=== PATIENT | male | born 1965 | race African-American/Black ===

== ENCOUNTER 2023-05-02 21:56 | Inpatient (IN) | payer MEDICAID ==
[~2023-05-02] VITALS: Ht 172.7 cm; Wt 65.0 kg
[2023-05-02 23:28] LABS: BASOPHILS % (AUTO) 0.4 % (0-1); EOSINOPHILS % (AUTO) 0.6 % (0-6); HEMATOCRIT 39.6 % (42.0-52.0); HEMOGLOBIN 13.1 g/dl (14.0-17.9); LYMPHOCYTES # (AUTO) 0.6 X10'3 (1.1-4.8); LYMPHOCYTES % (AUTO) 6.3 % (21-51); MEAN CORPUSCULAR HEMOGLOBIN 28.8 PG (27.0-31.0); MEAN CORPUSCULAR VOLUME 87.5 FL (78-98); MEAN PLATELET VOLUME 6.8 FL (7.4-10.4); MONOCYTES # (AUTO) 0.7 X10'3 (0-0.9); MONOCYTES % (AUTO) 7.4 % (2-12); NEUTROPHILS # (AUTO) 7.6 X10'3 (1.8-7.7); NEUTROPHILS % (AUTO) 85.3 % (42-75); PLATELET COUNT 283 X10'3 (140-440); RED BLOOD COUNT 4.53 X10'6 (4.70-6.10); WHITE BLOOD COUNT 8.9 X10'3 (4.5-11.0)
[2023-05-02 23:42] LABS: ALANINE AMINOTRANSFERASE 25 U/L (12-78); ALBUMIN 3.4 G/DL (3.4-5.0); ALBUMIN/GLOBULIN RATIO 0.8 (1.1-1.5); ALKALINE PHOSPHATASE 81 IU/L (46-116); ANION GAP 8 (8-16); ASPARTATE AMINO TRANSFERASE 24 U/L (10-37); BILIRUBIN,TOTAL 0.3 MG/DL (0.1-1.0); BLOOD UREA NITROGEN 7 MG/DL (7-18); BUN/CREATININE RATIO 8.3 (10.0-20.0); CALCIUM 8.9 MG/DL (8.5-10.1); CHLORIDE 99 MMOL/L (99-107); CREATININE 0.84 MG/DL (0.60-1.10); GLUCOSE 103 MG/DL (70-104); POTASSIUM 3.7 MMOL/L (3.5-5.1); SODIUM 135 MMOL/L (135-145); TOTAL CARBON DIOXIDE 28.3 MMOL/L (24-32); TOTAL PROTEIN 7.7 G/DL (6.4-8.2); eCRCL 87 ML/MIN; eGFR > 90 ML/MIN
[2023-05-02 23:51] LABS: PRO BRAIN NATRIURETIC PEPTIDE 65 PG/ML (0-125)
[2023-05-03] MEDS ORDERED: normal saline 1000ML IV soln IVB ONE (07:40)
[2023-05-03] MEDS ORDERED: nitroGLYCERIN 0.4mg/hour patch TD ONE (07:40)
[2023-05-03] MEDS ORDERED: aspirin 81mg tab.chew PO ONE (07:40)
[2023-05-03 08:23] LABS: URINE AMPHETAMINE SCREEN NEGATIVE (Neg); URINE BARBITUATE SCREEN NEGATIVE (Neg); URINE BENZODIAZEPINES SCREEN NEGATIVE (Neg); URINE CANNABINOID SCREEN NEGATIVE (Neg); URINE COCAINE SCREEN NEGATIVE (Neg); URINE METHADONE SCREEN NEGATIVE (Neg); URINE OPIATE SCREEN NEGATIVE (Neg); URINE PHENCYCLIDINE SCREEN NEGATIVE (Neg)
[2023-05-03 08:33] LABS: MAGNESIUM 2.2 MG/DL (1.5-2.4)
[2023-05-03 08:35] LABS: ETHANOL < 10 MG/DL (<10)
[2023-05-03 09:21] LABS: APTT 47 SECONDS (22-32); PROTHROMBIN TIME 10.9 SECONDS (9.0-12.0)
[2023-05-03 10:50] LABS: LIPASE < 50 U/L (73-393)
[2023-05-03] MEDS ORDERED: metoprolol tartrate 1mg/ml inj IV PRN (13:05)
[2023-05-03] MEDS ORDERED: nitroGLYCERIN 0.4mg SUBLingual tab SL PRN (13:05)
[2023-05-03] MEDS ORDERED: PERFLUTREN PROTEIN-A MICROSPHR (Optison) 0.22 MG/ML 3ML VIAL IV ONE (13:05)
[2023-05-03] MEDS ORDERED: aminophylline 250mg/10ml inj. IV PRN (13:05)
[2023-05-03] MEDS ORDERED: regadenoson 0.4mg/5ml syringe IV PRN (13:05)
[2023-05-03] MEDS ORDERED: ipratropium/albuterol 3ml nebule NEB PRN (13:10)
[2023-05-03] MEDS: nicotine 14mg patch - 24hr TD SCH (13:10)
[2023-05-03] MEDS ORDERED: mag hydrox/Alum hydrox/simeth 30ml oral suspension PO PRN (13:10)
[2023-05-03] MEDS ORDERED: magnesium 4gm in 100ml NS 100 ML IV PRN (13:10)
[2023-05-03] MEDS ORDERED: acetaminophen 325mg tablet PO PRN (13:10)
[2023-05-03] MEDS ORDERED: potassium Cl 40MEQ/1/2NS 520ml 520 ML IV PRN (13:10)
[2023-05-03] MEDS ORDERED: ondansetron/PF 4mg/2ml inj IV PRN (13:10)
[2023-05-03] MEDS ORDERED: albuterol 2.5 MG/3 ML nebule NEB PRN (13:10)
[2023-05-03] MEDS ORDERED: potassium Cl 20 mEq SR tablet PO PRN ×2 (13:10)
[2023-05-03] MEDS ORDERED: magnesium 2GM in 50ml NS 50 ML IV PRN (13:10)
[2023-05-03] MEDS ORDERED: CefTRIAXone/D5W-Rocephin 1gm 50 ML IV ONE (13:35)
--- NOTE | 2023-05-03 13:37 | NUR ---
evaluated pt for stress test, pt c/o chest pain, has a nitro patch on, skin is warm to touch, temp 100.[address] San aware and gave verbal order to hold stress test until tomorrow. Jacque RN aware of plan
[2023-05-03] MEDS ORDERED: iohexol 350MG/ML 100ml bottle IV ONE (14:10)
[2023-05-03 15:00] LABS: BASOPHILS # (AUTO) 0.1 X10'3 (0-0.2); BASOPHILS % (AUTO) 1.1 % (0-1); EOSINOPHILS % (AUTO) 0.3 % (0-6); HEMATOCRIT 37.6 % (42.0-52.0); HEMOGLOBIN 12.5 g/dl (14.0-17.9); LYMPHOCYTES # (AUTO) 0.4 X10'3 (1.1-4.8); LYMPHOCYTES % (AUTO) 5.8 % (21-51); MEAN CORPUSCULAR HEMOGLOBIN 28.8 PG (27.0-31.0); MEAN CORPUSCULAR HGB CONC 33.2 g/dL (33.0-36.5); MEAN CORPUSCULAR VOLUME 86.6 FL (78-98); MEAN PLATELET VOLUME 6.9 FL (7.4-10.4); MONOCYTES # (AUTO) 0.7 X10'3 (0-0.9); MONOCYTES % (AUTO) 9.6 % (2-12); NEUTROPHILS # (AUTO) 6.3 X10'3 (1.8-7.7); NEUTROPHILS % (AUTO) 83.2 % (42-75); PLATELET COUNT 244 X10'3 (140-440); RED BLOOD COUNT 4.34 X10'6 (4.70-6.10); WHITE BLOOD COUNT 7.6 X10'3 (4.5-11.0)
[2023-05-03 15:01] VITALS: PULSE 103; RESP 20; O2SAT 99
[2023-05-03 15:06] LABS: ALANINE AMINOTRANSFERASE 22 U/L (12-78); ALBUMIN 2.9 G/DL (3.4-5.0); ALBUMIN/GLOBULIN RATIO 0.7 (1.1-1.5); ALKALINE PHOSPHATASE 74 IU/L (46-116); ANION GAP 8 (8-16); ASPARTATE AMINO TRANSFERASE 16 U/L (10-37); BILIRUBIN,TOTAL 0.7 MG/DL (0.1-1.0); BLOOD UREA NITROGEN 8 MG/DL (7-18); BUN/CREATININE RATIO 8.5 (10.0-20.0); CALCIUM 8.6 MG/DL (8.5-10.1); CHLORIDE 98 MMOL/L (99-107); CREATININE 0.94 MG/DL (0.60-1.10); GLUCOSE 92 MG/DL (70-104); POTASSIUM 3.9 MMOL/L (3.5-5.1); SODIUM 131 MMOL/L (135-145); TOTAL CARBON DIOXIDE 25.3 MMOL/L (24-32); TOTAL PROTEIN 6.8 G/DL (6.4-8.2); eCRCL 78 ML/MIN; eGFR > 90 ML/MIN
[2023-05-03] MEDS ORDERED: ATOR20TA PO (15:31)
[2023-05-03] MEDS ORDERED: METO-395 PO (15:31)
[2023-05-03] MEDS ORDERED: ASPI81TA52 PO (15:31)
[2023-05-03] MEDS ORDERED: AMIT10TA6 PO (15:31)
[2023-05-03] MEDS ORDERED: NITR0.4T51 SL (15:31)
--- NOTE | 2023-05-03 16:22 | NUR ---
Received report from BOOGIE Santillan from the ED of the plan of care for pt.
--- NOTE | 2023-05-03 16:22 | NUR ---
Report given to Christin RN, pt assigned bed [id number]
[2023-05-03 18:00] VITALS: BP 116/72; PULSE 108; RESP 20; TEMP 98.9; O2SAT 96
--- NOTE | 2023-05-03 18:30 | NUR ---
Patient in room ORTHO 4010. I have received report from ADELINE PAGAN and had the opportunity to ask questions and assume patient care.
[2023-05-03 19:11] VITALS: PULSE 105; RESP 16; O2SAT 99
[2023-05-03 20:00] VITALS: RESP 17; O2SAT 96
[2023-05-03] MEDS: K and/or MAG REPLACEMENT MC SCH (20:00)
[2023-05-03] MEDS: enoxaparin 40mg/0.4ml syringe SQ SCH (20:46)
[2023-05-03] MEDS: docusate sod 100mg capsule PO SCH (20:53)
[2023-05-03 22:00] VITALS: BP 146/54; PULSE 67; RESP 16; RESP 17; TEMP 98.4; O2SAT 95; O2SAT 96
--- NOTE | 2023-05-03 23:31 | NUR ---
Patient report given, questions answered & plan of care reviewed with PRUDENCE RN.
[2023-05-04] VITALS (17 sets, daily range): BP systolic 117–144; BP diastolic 77–96; PULSE 81–116; RESP 16–22; TEMP 97.8–99.9; O2SAT 97–100
--- NOTE | 2023-05-04 06:44 | NUR ---
Problems reprioritized. Patient report given, questions answered & plan of care reviewed with KELSY HYMAN.
[2023-05-04 07:10] LABS: BASOPHILS % (AUTO) 0.2 % (0-1); EOSINOPHILS % (AUTO) 0.2 % (0-6); HEMATOCRIT 39.7 % (42.0-52.0); HEMOGLOBIN 13.1 g/dl (14.0-17.9); LYMPHOCYTES # (AUTO) 0.7 X10'3 (1.1-4.8); LYMPHOCYTES % (AUTO) 10.6 % (21-51); MEAN CORPUSCULAR HEMOGLOBIN 28.7 PG (27.0-31.0); MEAN PLATELET VOLUME 7.5 FL (7.4-10.4); MONOCYTES # (AUTO) 0.7 X10'3 (0-0.9); MONOCYTES % (AUTO) 11.4 % (2-12); NEUTROPHILS # (AUTO) 4.9 X10'3 (1.8-7.7); NEUTROPHILS % (AUTO) 77.6 % (42-75); PLATELET COUNT 245 X10'3 (140-440); RED BLOOD COUNT 4.57 X10'6 (4.70-6.10); RED CELL DISTRIBUTION WIDTH 14.3 % (11.5-14.5); WHITE BLOOD COUNT 6.4 X10'3 (4.5-11.0)
[2023-05-04 07:28] LABS: ALANINE AMINOTRANSFERASE 19 U/L (12-78); ALBUMIN 2.8 G/DL (3.4-5.0); ALBUMIN/GLOBULIN RATIO 0.6 (1.1-1.5); ALKALINE PHOSPHATASE 70 IU/L (46-116); ANION GAP 6 (8-16); ASPARTATE AMINO TRANSFERASE 15 U/L (10-37); BILIRUBIN,TOTAL 0.6 MG/DL (0.1-1.0); BLOOD UREA NITROGEN 12 MG/DL (7-18); BUN/CREATININE RATIO 12.1 (10.0-20.0); CALCIUM 9.2 MG/DL (8.5-10.1); CHLORIDE 100 MMOL/L (99-107); CREATININE 0.99 MG/DL (0.60-1.10); GLUCOSE 97 MG/DL (70-104); POTASSIUM 4.1 MMOL/L (3.5-5.1); SODIUM 132 MMOL/L (135-145); TOTAL CARBON DIOXIDE 25.6 MMOL/L (24-32); TOTAL PROTEIN 7.3 G/DL (6.4-8.2); eCRCL 74 ML/MIN; eGFR > 90 ML/MIN
[2023-05-04] MEDS: K and/or MAG REPLACEMENT MC SCH ×2 (07:45→19:11)
[2023-05-04] MEDS: nicotine 14mg patch - 24hr TD SCH ×2 (08:00→18:01)
[2023-05-04] MEDS: docusate sod 100mg capsule PO SCH ×2 (08:00→20:00)
[2023-05-04] MEDS: CefTRIAXone/D5W-Rocephin 1gm 50 ML IV SCH (10:59)
[2023-05-04] MEDS: normal saline 1000ml 1,000 ML IV SCH (16:04)
[2023-05-04] MEDS ORDERED: lisinopril 5mg tablet PO ONE (17:20)
[2023-05-04] MEDS: nitroGLYCERIN 0.4mg SUBLingual tab SL PRN (18:02)
--- NOTE | 2023-05-04 18:40 | NUR ---
Report given to Shaila Downing RN, pt eating dinner at this time.
[2023-05-04] MEDS: enoxaparin 40mg/0.4ml syringe SQ SCH (20:04)
[2023-05-04] MEDS ORDERED: amitriptyline 10mg tablet PO SCH (21:00)
[2023-05-04] MEDS ORDERED: atorvastatin 20mg tablet PO SCH (21:00)
[2023-05-05] VITALS (13 sets, daily range): BP systolic 93–141; BP diastolic 65–89; PULSE 77–96; RESP 16–18; TEMP 98.4; O2SAT 92–96
[2023-05-05] MEDS: nitroGLYCERIN 0.4mg SUBLingual tab SL PRN ×3 (01:37→02:43)
--- NOTE | 2023-05-05 02:26 | NUR ---
patient c/o chest pain for 2nd time in an hour. Nitro administered, VS taken. Will retake in 15 minutes.
[2023-05-05] MEDS ORDERED: albumin (human) 25% 100 ML IV solution IV ONE (02:50)
[2023-05-05] MEDS ORDERED: morphine 2 MG/ML inj. syringe IV PRN (02:50)
[2023-05-05] MEDS: normal saline 1000ml 1,000 ML IV SCH ×2 (04:00→17:50)
[2023-05-05 06:17] LABS: BASOPHILS % (AUTO) 0.5 % (0-1); EOSINOPHILS # (AUTO) 0.1 X10'3 (0-0.9); EOSINOPHILS % (AUTO) 1.7 % (0-6); HEMATOCRIT 37.9 % (42.0-52.0); HEMOGLOBIN 12.7 g/dl (14.0-17.9); LYMPHOCYTES # (AUTO) 0.9 X10'3 (1.1-4.8); LYMPHOCYTES % (AUTO) 17.9 % (21-51); MEAN CORPUSCULAR HEMOGLOBIN 29.2 PG (27.0-31.0); MEAN CORPUSCULAR HGB CONC 33.6 g/dL (33.0-36.5); MEAN CORPUSCULAR VOLUME 86.9 FL (78-98); MEAN PLATELET VOLUME 7.4 FL (7.4-10.4); MONOCYTES # (AUTO) 0.7 X10'3 (0-0.9); MONOCYTES % (AUTO) 12.7 % (2-12); NEUTROPHILS # (AUTO) 3.6 X10'3 (1.8-7.7); NEUTROPHILS % (AUTO) 67.2 % (42-75); PLATELET COUNT 225 X10'3 (140-440); RED BLOOD COUNT 4.36 X10'6 (4.70-6.10); RED CELL DISTRIBUTION WIDTH 13.9 % (11.5-14.5); WHITE BLOOD COUNT 5.3 X10'3 (4.5-11.0)
--- NOTE | 2023-05-05 06:25 | NUR ---
Problems reprioritized. Patient report given, questions answered & plan of care reviewed with BOOGIE Kiran.
[2023-05-05 06:42] LABS: ALANINE AMINOTRANSFERASE 13 U/L (12-78); ALBUMIN 2.8 G/DL (3.4-5.0); ALBUMIN/GLOBULIN RATIO 0.6 (1.1-1.5); ALKALINE PHOSPHATASE 57 IU/L (46-116); ANION GAP 8 (8-16); ASPARTATE AMINO TRANSFERASE 16 U/L (10-37); BILIRUBIN,TOTAL 0.3 MG/DL (0.1-1.0); BLOOD UREA NITROGEN 14 MG/DL (7-18); BUN/CREATININE RATIO 14.4 (10.0-20.0); CALCIUM 9.5 MG/DL (8.5-10.1); CHLORIDE 101 MMOL/L (99-107); CHOL/HDL RATIO 2.7 (0.00-4.99); CHOLESTEROL 145 MG/DL (0-200); CREATININE 0.97 MG/DL (0.60-1.10); GLUCOSE 99 MG/DL (70-104); HDL CHOLESTEROL 54 MG/DL (35-60); LDL CHOLESTEROL 71 MG/DL (50-100); POTASSIUM 4.1 MMOL/L (3.5-5.1); SODIUM 134 MMOL/L (135-145); TOTAL PROTEIN 7.2 G/DL (6.4-8.2); TRIGLYCERIDES 68 MG/DL (20-135); eCRCL 75 ML/MIN; eGFR > 90 ML/MIN
[2023-05-05] MEDS: K and/or MAG REPLACEMENT MC SCH (06:43)
[2023-05-05] MEDS: CefTRIAXone/D5W-Rocephin 1gm 50 ML IV SCH (07:11)
[2023-05-05] MEDS: docusate sod 100mg capsule PO SCH (07:22)
[2023-05-05] MEDS ORDERED: lisinopril 5mg tablet PO SCH (08:00)
[2023-05-05] MEDS ORDERED: aspirin 81mg, enteric-coated 1 TAB TABLET.DR PO SCH (08:00)
[2023-05-05] MEDS ORDERED: metoprolol succinate 25mg (24-HOUR) SR. Tablet PO SCH (08:00)
[2023-05-05] MEDS ORDERED: atorvastatin 20mg tablet PO SCH (08:00)
[2023-05-05] MEDS ORDERED: LIDOcaine 1% 30ml preserv. free vial ONE (09:05)
[2023-05-05] MEDS ORDERED: midazolam 1 mg/ML 2ml injection ONE ×2 (09:05→10:56)
[2023-05-05] MEDS ORDERED: fentaNYL/PF 50MCG/1 ML 2ML syringe ONE ×2 (09:05→11:04)
[2023-05-05] MEDS ORDERED: iohexol 350MG/ML 100ml bottle IV ONE (09:06)
[2023-05-05] MEDS ORDERED: iohexol 350 MG/ML 50ML vial IV ONE ×2 (09:07→10:59)
--- NOTE | 2023-05-05 10:01 | NUR ---
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
[2023-05-05] MEDS ORDERED: HYDROcodone/acetaminophen 10/325mg tab PO PRN (12:15)
[2023-05-05] MEDS ORDERED: HYDROcodone/acetaminophen 5mg/325mg tablet PO PRN (12:15)
[2023-05-05] MEDS ORDERED: ondansetron/PF 4mg/2ml inj IV PRN (12:15)
[2023-05-05] MEDS ORDERED: nitroGLYCERIN 0.4mg SUBLingual tab SL PRN (12:15)
[2023-05-05] MEDS ORDERED: OXAZEpam 15mg capsule PO PRN (12:15)
[2023-05-05] MEDS ORDERED: proCHLORperazine 10 MG/2 ml inj IV PRN (12:15)
[2023-05-05] MEDS: nicotine 14mg patch - 24hr TD SCH (13:00)
--- NOTE | 2023-05-05 13:05 | NUR ---
Patient laying flat, no bleeding from site, will release pressure for 2 minutes at 1400 and 1600 and then at 1800 i will remove femstop per orders and assess for issues. no hematoma noted at this time
--- NOTE | 2023-05-05 14:00 | NUR ---
Femstop released for 2min per protocol and circulation, sensation and movement maintained and intact. Next release at 1600. Dr San says patient will be realeased after femstop is taken off at 1800.
[2023-05-05] MEDS ORDERED: LISI5TAB22 PO (14:01)
[2023-05-05] MEDS ORDERED: PANT-47 PO (14:01)
[2023-05-05] MEDS ORDERED: NICO-631 TD (14:08)
--- NOTE | 2023-05-05 15:38 | NUR ---
Patient sleeping comfortably, site, cdi with no evidence of hematoma
--- NOTE | 2023-05-05 16:16 | NUR ---
Femstop loostened for 2 minutes per protocol now back at standard setting. No signs of bleeding or hematoma. Pt doing well. Will DC femstop and patient at 1800 if stable
--- NOTE | 2023-05-05 18:04 | NUR ---
Femstop dc'd, no bleeding or signs of hematoma. Pt discharging per Dr Navarro orders. Patient would like to sit outside and wait for daughter. Patient is completely alert and oriented and stable on feet, has a cell phone and wants to wait for either daughter or "lady friend" to pick him up. Patient educated that if he does choose to smoke, although he has been advised against it, to take off his nicotine patch. Patient is getting dressed, ate dinner. 2x IV's dc'd, tele dc'd. All belongings will be taken from room.
== END 2023-05-05 18:25 | disposition home or self-care (01) | DRG 192 ==
LOC: ER 21:57 → ED HOLD 05-03 13:14 → ORTHO 4S 05-03 16:32
PROVIDERS: ADMIT Family Medicine; ATTEND Family Medicine
PROC: B32T1ZZ Computerized Tomography (CT Scan) of Left Pulmonary Artery using Low Osmolar Contrast (ICD-10-PCS; 2023-05-03)
PROC: B3201ZZ Computerized Tomography (CT Scan) of Thoracic Aorta using Low Osmolar Contrast (ICD-10-PCS; 2023-05-03)
PROC: B32S1ZZ Computerized Tomography (CT Scan) of Right Pulmonary Artery using Low Osmolar Contrast (ICD-10-PCS; 2023-05-03)
PROC: 4A02XM4 Measurement of Cardiac Total Activity, External Approach (ICD-10-PCS; 2023-05-04)
PROC: 3E033HZ Introduction of Radioactive Substance into Peripheral Vein, Percutaneous Approach (ICD-10-PCS; 2023-05-04)
PROC: 4A023N7 Measurement of Cardiac Sampling and Pressure, Left Heart, Percutaneous Approach (ICD-10-PCS; principal; 2023-05-05)
PROC: B2111ZZ Fluoroscopy of Multiple Coronary Arteries using Low Osmolar Contrast (ICD-10-PCS; 2023-05-05)
PROC: B2151ZZ Fluoroscopy of Left Heart using Low Osmolar Contrast (ICD-10-PCS; 2023-05-05)
PROC: B3101ZZ Fluoroscopy of Thoracic Aorta using Low Osmolar Contrast (ICD-10-PCS; 2023-05-05)
PROC: B41F1ZZ Fluoroscopy of Right Lower Extremity Arteries using Low Osmolar Contrast (ICD-10-PCS; 2023-05-05)
PROC: B3121ZZ Fluoroscopy of Left Subclavian Artery using Low Osmolar Contrast (ICD-10-PCS; 2023-05-05)
PROC: B31H1ZZ Fluoroscopy of Right Upper Extremity Arteries using Low Osmolar Contrast (ICD-10-PCS; 2023-05-05)
PROC: B41C1ZZ Fluoroscopy of Pelvic Arteries using Low Osmolar Contrast (ICD-10-PCS; 2023-05-05)
DX: R07.89 Other chest pain (principal); I50.21 Acute systolic (congestive) heart failure; K21.9 Gastro-esophageal reflux disease without esophagitis; I25.110 Atherosclerotic heart disease of native coronary artery with unstable angina pectoris; I42.9 Cardiomyopathy, unspecified; I11.0 Hypertensive heart disease with heart failure; E78.00 Pure hypercholesterolemia, unspecified; F17.210 Nicotine dependence, cigarettes, uncomplicated; I08.3 Combined rheumatic disorders of mitral, aortic and tricuspid valves; F31.9 Bipolar disorder, unspecified; I25.2 Old myocardial infarction; Z79.899 Other long term (current) drug therapy; Z82.49 Family history of ischemic heart disease and other diseases of the circulatory system; Z88.0 Allergy status to penicillin; Z71.6 Tobacco abuse counseling
CPT/HCPCS: 36415; 71045; 71275; 78452; 80053; 80061; 80305; 80320; 83605; 83690; 83735; 83880; 84145; 84484; 85025; 85610; 85730; 87040; 87081; 93005; 93017; 93306; 93458; 93567; 94760; 97161; 97530; 99152; 99153; 99285; A4615; A6258; A9500; G0378; J0696; J1644; J1650; J2250; J2270; J2785; J3010; J3490; J7030; P9047; Q9967

== ENCOUNTER 2023-06-01 08:52 | Emergency (ER) | payer MEDICAID ==
[~2023-06-01] VITALS: Ht 172.7 cm; Wt 66.0 kg
[~2023-06-01 08:52] MED LIST: AMIT10TA6 PO; ASPI81TA52 PO; ATOR20TA PO; LISI5TAB22 PO; METO-395 PO; NICO-631 TD; NITR0.4T51 SL; PANT-47 PO
--- NOTE | 2023-06-01 10:20 | NUR ---
AIRWAY IS PATENT. RESPIRATIONS APPEAR EVEN AND UNLABORED. RADIAL PULSE IS 103.
[2023-06-01] MEDS ORDERED: triamcinolone acetonide 0.5% cream 15gm TP SCH (10:35)
[2023-06-01] MEDS ORDERED: TRIA15CR61 TOP (10:55)
[2023-06-01 11:15] VITALS: BP 162/93; PULSE 99; RESP 18; TEMP 98.2; O2SAT 100
--- NOTE | 2023-06-01 12:33 | NUR ---
I AGREE WITH THE ASSESSMENT OF Mandy BOURGEOIS LVN.
== END 2023-06-01 12:34 | disposition home or self-care (01) ==
LOC: ER 08:53
DX: L28.0 Lichen simplex chronicus (principal); F31.9 Bipolar disorder, unspecified; Z88.0 Allergy status to penicillin; Z79.899 Other long term (current) drug therapy
CPT/HCPCS: 99283

== ENCOUNTER 2023-06-05 10:38 | Inpatient (IN) | payer MEDICAID ==
[~2023-06-05] VITALS: Ht 172.7 cm; Wt 70.0 kg
[~2023-06-05 10:38] MED LIST changes: +TRIA15CR61 TOP
[2023-06-05] MEDS ORDERED: oxyCODONE/APAP 5-325mg tablet PO ONE (11:25)
[2023-06-05] MEDS ORDERED: normal saline 1000ML IV soln IV ONE (11:30)
[2023-06-05] MEDS ORDERED: levoFLOXACIN-Levaquin 750MG/D5 150 ML IV ONE (11:30)
[2023-06-05] MEDS ORDERED: vancomycin/NS 1 GM ADD-VANTAGE 250 ML X 1 DOSE IV ONE (12:20)
[2023-06-05 12:31] LABS: BASOPHILS % (AUTO) 0.2 % (0-1); EOSINOPHILS % (AUTO) 0.1 % (0-6); HEMATOCRIT 41.6 % (42.0-52.0); HEMOGLOBIN 13.5 g/dl (14.0-17.9); LYMPHOCYTES # (AUTO) 0.6 X10'3 (1.1-4.8); LYMPHOCYTES % (AUTO) 3.9 % (21-51); MEAN CORPUSCULAR HEMOGLOBIN 28.6 PG (27.0-31.0); MEAN CORPUSCULAR HGB CONC 32.5 g/dL (33.0-36.5); MEAN CORPUSCULAR VOLUME 87.8 FL (78-98); MONOCYTES # (AUTO) 1.4 X10'3 (0-0.9); MONOCYTES % (AUTO) 9.9 % (2-12); NEUTROPHILS # (AUTO) 12.2 X10'3 (1.8-7.7); NEUTROPHILS % (AUTO) 85.9 % (42-75); PLATELET COUNT 305 X10'3 (140-440); RED BLOOD COUNT 4.74 X10'6 (4.70-6.10); RED CELL DISTRIBUTION WIDTH 14.1 % (11.5-14.5); WHITE BLOOD COUNT 14.2 X10'3 (4.5-11.0)
[2023-06-05 12:46] LABS: ALANINE AMINOTRANSFERASE 17 U/L (12-78); ALBUMIN 3.1 G/DL (3.4-5.0); ALBUMIN/GLOBULIN RATIO 0.6 (1.1-1.5); ALKALINE PHOSPHATASE 69 IU/L (46-116); ASPARTATE AMINO TRANSFERASE 18 U/L (10-37); BILIRUBIN,TOTAL 0.4 MG/DL (0.1-1.0); BLOOD UREA NITROGEN 5 MG/DL (7-18); BUN/CREATININE RATIO 5.9 (10.0-20.0); CALCIUM 9.5 MG/DL (8.5-10.1); CREATININE 0.85 MG/DL (0.60-1.10); GLUCOSE 100 MG/DL (70-104); MAGNESIUM 2.2 MG/DL (1.5-2.4); TOTAL CARBON DIOXIDE 28.6 MMOL/L (24-32); TOTAL PROTEIN 8.4 G/DL (6.4-8.2); eCRCL 91 ML/MIN; eGFR > 90 ML/MIN
[2023-06-05 12:54] LABS: ANION GAP 8 (8-16); CHLORIDE 95 MMOL/L (99-107); POTASSIUM 3.6 MMOL/L (3.5-5.1); SODIUM 132 MMOL/L (135-145)
[2023-06-05] MEDS ORDERED: ondansetron/PF 4mg/2ml inj IV PRN (13:30)
[2023-06-05] MEDS ORDERED: potassium Cl 20 mEq SR tablet PO PRN ×2 (13:30)
[2023-06-05] MEDS ORDERED: magnesium 4gm in 100ml NS 100 ML IV PRN (13:30)
[2023-06-05] MEDS ORDERED: magnesium hydroxide 30ml (MOM) UD suspension PO PRN (13:30)
[2023-06-05] MEDS ORDERED: acetaminophen 325mg tablet PO PRN (13:30)
[2023-06-05] MEDS ORDERED: magnesium Cl slow-release 64mg tablet PO PRN (13:30)
[2023-06-05] MEDS ORDERED: diphenhydrAMINE 25mg capsule PO PRN (13:30)
[2023-06-05] MEDS ORDERED: haloperidol lactate 5mg/ml inj IM PRN (13:40)
[2023-06-05] MEDS ORDERED: dextrose 50%-water 50ml dispensing syringe IV PRN (13:40)
[2023-06-05] MEDS ORDERED: nicotine 21mg patch - 24 hr TD SCH (13:40)
[2023-06-05] MEDS ORDERED: LORazepam 1 MG tablet PO PRN ×2 (13:40→18:45)
[2023-06-05] MEDS ORDERED: haloperidol 5mg tablet PO PRN (13:40)
[2023-06-05] MEDS ORDERED: LORazepam 2 mg/ml vial IV PRN ×2 (13:40→18:45)
[2023-06-05 14:20] LABS: APTT 49 SECONDS (22-32); INR 1.1 INR; PROTHROMBIN TIME 11.4 SECONDS (9.0-12.0)
--- NOTE | 2023-06-05 15:05 | NUR ---
LAB HERE TO DRAW BLOOD CULTURES AFTER ADMINISTRATION OF LEVAQUIN. SPOKE WITH DR. PRATER AND IS REQUESTING CULTURES TO BE DRAWN AT THIS TIME.
[2023-06-05] MEDS: vancomycin/NS 1 GM ADD-VANTAGE 250 ML IV SCH (15:08)
[2023-06-05] MEDS: metoprolol succinate 25mg (24-HOUR) SR. Tablet PO SCH (15:57)
[2023-06-05] MEDS: aspirin 81mg, enteric-coated 1 TAB TABLET.DR PO SCH (15:58)
[2023-06-05] MEDS: folic acid 1mg/0.2ml inj IV SCH (16:26)
[2023-06-05 16:28] LABS: BILIRUBIN,URINE NEGATIVE (Neg); CLARITY,URINE CLEAR (Clear); COLOR,URINE STRAW (Yellow); GLUCOSE, URINE NEGATIVE (Neg); KETONES,URINE NEGATIVE (Neg); LEUKOCYTE ESTERASE ,URINE NEGATIVE (Neg); NITRITES, URINE NEGATIVE (Neg); OCCULT BLOOD,URINE TRACE-INTACT (Neg); PH,URINE 6.5 (4.8-8.0); PROTEIN,URINE NEGATIVE (Neg); UROBILINOGEN,URINE 0.2 E.U/dL (0.2-1.0)
[2023-06-05 16:33] LABS: UA COLLECTION TYPE VOIDED
[2023-06-05] MEDS: HYDROcodone/acetaminophen 5mg/325mg tablet PO PRN ×2 (16:38→20:59)
[2023-06-05 16:42] LABS: BACTERIA,URINE FEW /HPF (Neg); MUCUS STRANDS FEW /LPF (Neg); RBC,URINE 0-2 /HPF (0-2); SQUAMOUS EPITHELIAL CELL,UR FEW /LPF (FEW); WBC,URINE 0-4 /HPF (0-4)
[2023-06-05 16:43] LABS: URINE AMPHETAMINE SCREEN POSITIVE (Neg); URINE BARBITUATE SCREEN NEGATIVE (Neg); URINE BENZODIAZEPINES SCREEN NEGATIVE (Neg); URINE CANNABINOID SCREEN NEGATIVE (Neg); URINE COCAINE SCREEN NEGATIVE (Neg); URINE METHADONE SCREEN NEGATIVE (Neg); URINE OPIATE SCREEN POSITIVE (Neg); URINE PHENCYCLIDINE SCREEN NEGATIVE (Neg)
[2023-06-05] MEDS: atorvastatin 20mg tablet PO SCH (20:59)
[2023-06-05] MEDS: thiamine 100mg/ml 2ml inj. IV SCH (21:00)
[2023-06-06] MEDS: vancomycin/NS 1 GM ADD-VANTAGE 250 ML IV SCH ×2 (03:09→17:00)
[2023-06-06] MEDS: HYDROcodone/acetaminophen 5mg/325mg tablet PO PRN (03:31)
[2023-06-06 03:33] LABS: BASOPHILS % (AUTO) 0.2 % (0-1); EOSINOPHILS % (AUTO) 0.3 % (0-6); HEMATOCRIT 35.3 % (42.0-52.0); HEMOGLOBIN 11.8 g/dl (14.0-17.9); LYMPHOCYTES # (AUTO) 0.8 X10'3 (1.1-4.8); LYMPHOCYTES % (AUTO) 7.6 % (21-51); MEAN CORPUSCULAR HEMOGLOBIN 28.9 PG (27.0-31.0); MEAN CORPUSCULAR HGB CONC 33.5 g/dL (33.0-36.5); MEAN CORPUSCULAR VOLUME 86.3 FL (78-98); MEAN PLATELET VOLUME 6.8 FL (7.4-10.4); MONOCYTES % (AUTO) 9.8 % (2-12); NEUTROPHILS # (AUTO) 8.5 X10'3 (1.8-7.7); NEUTROPHILS % (AUTO) 82.1 % (42-75); PLATELET COUNT 296 X10'3 (140-440); RED BLOOD COUNT 4.09 X10'6 (4.70-6.10); WHITE BLOOD COUNT 10.3 X10'3 (4.5-11.0)
[2023-06-06 03:49] LABS: ALANINE AMINOTRANSFERASE 13 U/L (12-78); ALBUMIN 2.5 G/DL (3.4-5.0); ALBUMIN/GLOBULIN RATIO 0.6 (1.1-1.5); ALKALINE PHOSPHATASE 57 IU/L (46-116); ANION GAP 4 (8-16); ASPARTATE AMINO TRANSFERASE 9 U/L (10-37); BILIRUBIN,TOTAL 0.4 MG/DL (0.1-1.0); BLOOD UREA NITROGEN 7 MG/DL (7-18); BUN/CREATININE RATIO 7.7 (10.0-20.0); CALCIUM 9.1 MG/DL (8.5-10.1); CHLORIDE 103 MMOL/L (99-107); CREATININE 0.91 MG/DL (0.60-1.10); GLUCOSE 97 MG/DL (70-104); POTASSIUM 3.6 MMOL/L (3.5-5.1); SODIUM 136 MMOL/L (135-145); TOTAL CARBON DIOXIDE 28.9 MMOL/L (24-32); eCRCL 85 ML/MIN; eGFR > 90 ML/MIN
[2023-06-06] MEDS: folic acid 1mg/0.2ml inj IV SCH (08:00)
[2023-06-06] MEDS: metoprolol succinate 25mg (24-HOUR) SR. Tablet PO SCH (10:50)
[2023-06-06] MEDS: aspirin 81mg, enteric-coated 1 TAB TABLET.DR PO SCH (10:50)
[2023-06-06] MEDS: thiamine 100mg/ml 2ml inj. IV SCH ×3 (10:50→22:20)
--- NOTE | 2023-06-06 11:34 | NUR ---
RECEIVED REPORT FROM YVONNE RN ASSUMING CARE DURING LUNCH BREAK
--- NOTE | 2023-06-06 19:30 | NUR ---
PATIENT RESTING IN BED WITH FAMILY AT BEDSIDE. NO ACUTE DISTRESS NOTED AT THIS TIME. CALL LIGHT WITHIN REACH.
[2023-06-06] MEDS: morphine ER 15mg tablet PO SCH (20:30)
[2023-06-06] MEDS ORDERED: nicotine 21mg patch - 24 hr TD ONE (20:45)
--- NOTE | 2023-06-06 21:31 | NUR ---
PATIENT RESTING IN BED WITH EYES CLOSED, RESPIRATIONS EVEN AND UNLABORED, NO ACUTE DISTRESS NOTED AT THIS TIME. CALL LIGHT WITHIN REACH.
[2023-06-06] MEDS: atorvastatin 20mg tablet PO SCH (22:20)
[2023-06-07] VITALS (7 sets, daily range): BP systolic 118–138; BP diastolic 70–83; PULSE 74–82; RESP 14–16; TEMP 97.8–98.4; O2SAT 96–99
[2023-06-07] MEDS ORDERED: VANCOMYCIN LEVEL IV ONE (02:30)
[2023-06-07] MEDS: vancomycin/NS 1 GM ADD-VANTAGE 250 ML IV SCH (03:36)
[2023-06-07] MEDS: HYDROcodone/acetaminophen 5mg/325mg tablet PO PRN ×2 (03:43→14:56)
[2023-06-07 03:46] LABS: ALANINE AMINOTRANSFERASE 16 U/L (12-78); ALBUMIN 2.4 G/DL (3.4-5.0); ALBUMIN/GLOBULIN RATIO 0.5 (1.1-1.5); ALKALINE PHOSPHATASE 58 IU/L (46-116); ANION GAP 7 (8-16); ASPARTATE AMINO TRANSFERASE 13 U/L (10-37); BILIRUBIN,TOTAL 0.2 MG/DL (0.1-1.0); BLOOD UREA NITROGEN 11 MG/DL (7-18); BUN/CREATININE RATIO 10.3 (10.0-20.0); CALCIUM 9.2 MG/DL (8.5-10.1); CHLORIDE 103 MMOL/L (99-107); CREATININE 1.07 MG/DL (0.60-1.10); GLUCOSE 108 MG/DL (70-104); POTASSIUM 3.8 MMOL/L (3.5-5.1); SODIUM 138 MMOL/L (135-145); TOTAL CARBON DIOXIDE 27.7 MMOL/L (24-32); VANCOMYCIN,TROUGH 11.8 ug/mL (10.0-20.0); eCRCL 72 ML/MIN; eGFR 86 ML/MIN
[2023-06-07 06:25] LABS: BASOPHILS % (AUTO) 0.2 % (0-1); EOSINOPHILS # (AUTO) 0.1 X10'3 (0-0.9); EOSINOPHILS % (AUTO) 0.9 % (0-6); HEMATOCRIT 33.9 % (42.0-52.0); HEMOGLOBIN 11.3 g/dl (14.0-17.9); LYMPHOCYTES # (AUTO) 0.9 X10'3 (1.1-4.8); LYMPHOCYTES % (AUTO) 11.1 % (21-51); MEAN CORPUSCULAR HEMOGLOBIN 28.8 PG (27.0-31.0); MEAN CORPUSCULAR HGB CONC 33.2 g/dL (33.0-36.5); MEAN CORPUSCULAR VOLUME 86.7 FL (78-98); MONOCYTES # (AUTO) 0.7 X10'3 (0-0.9); MONOCYTES % (AUTO) 7.8 % (2-12); NEUTROPHILS # (AUTO) 6.7 X10'3 (1.8-7.7); PLATELET COUNT 303 X10'3 (140-440); RED BLOOD COUNT 3.91 X10'6 (4.70-6.10); RED CELL DISTRIBUTION WIDTH 13.9 % (11.5-14.5); WHITE BLOOD COUNT 8.4 X10'3 (4.5-11.0)
--- NOTE | 2023-06-07 06:25 | NUR ---
Problems reprioritized. Patient report given, questions answered & plan of care reviewed with
--- NOTE | 2023-06-07 06:38 | NUR ---
Patient in room PCU 3013. I have received report from Jie HYMAN and had the opportunity to ask questions and assume patient care.
[2023-06-07] MEDS: aspirin 81mg, enteric-coated 1 TAB TABLET.DR PO SCH (08:39)
[2023-06-07] MEDS: thiamine 100mg/ml 2ml inj. IV SCH ×2 (08:39→08:44)
[2023-06-07] MEDS: morphine ER 15mg tablet PO SCH (08:39)
[2023-06-07] MEDS: metoprolol succinate 25mg (24-HOUR) SR. Tablet PO SCH (08:39)
[2023-06-07] MEDS: folic acid 1mg/0.2ml inj IV SCH (08:44)
--- NOTE | 2023-06-07 11:35 | NUR ---
Pt presents with a right third finger abscess per EMR. Wound care has been consulted, pending [facility] note. Per RN physical assessment pt also has a rash to his abdomen. Will continue to monitor. Addendum: 06/07/23 at [address] Amended: Links added.
[2023-06-07] MEDS ORDERED: LEVO750T68 PO (12:10)
--- NOTE | 2023-06-07 13:59 | NUR ---
PRESSURE ULCER EDUCATION: DEFINITION: A pressure ulcer is an area of skin that breaks down when you stay in one position too long. The constant pressure against the skin reduces the blood flow to that area and the affected tissue dies. CAUSES: "Being bedridden or in a wheelchair "Fragile skin "Having a chronic condition, such as diabetes or vascular disease "Inability to move certain parts of your body without assistance "Older age "Incontinence of urine or stool SYMPTOMS: "A reddened area that DOES NOT turn white when pressed on - this can be the beginning of a pressure ulcer "A blister, deep sore or a crater - these can be advanced pressure ulcers FIRST AID: "Relieve the pressure on this area "Keep the area clean and dry "Call your primary doctor if you see any of the above symptoms "DO NOT massage the area "DO NOT use a donut shaped or ring shaped pillow- these actually interfere with the blood flow and cause complications PREVENTION: "Check for pressure ulcers everyday "Change position at least every two hours to relieve pressure "Use items that help relieve pressure- pillows, sheepskin, foam padding, and powders. "Keep skin clean and dry "Eat healthy well balanced meals "Exercise daily IF YOU SEE ANY OF THESE SYMPTOMS WHILE IN THE HOSPITAL - TELL YOUR NURSE IMMEDIATELY. IF YOU SEE ANY OF THESE SYMPTOMS WHILE AT HOME OR HAVE ANY QUESTIONS OR CONCERNS ABOUT PRESSURE ULCERS - CALL YOUR PRIMARY DOCTOR IMMEDIATELY. Addendum: 06/07/23 at 1400 by Mary Kebede RN Amended: Links added.
[2023-06-07] MEDS ORDERED: VANCOmycin 1250MG/NS 250ml Bag 250 ML IV SCH (15:00)
--- NOTE | 2023-06-07 19:51 | NUR ---
Pt. is discharged and staying with his sister. 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 Written instructions are provided. Wound Photos are taken and ultrasound is completed. Belongings and clothing are are with Pt. at [place].
[2023-06-08 16:10] LABS: HBSAG SCREEN Negative (Negative); HEP B CORE AB, IGM Negative (Negative); HEP B CORE AB, TOT Negative (Negative)
[2023-06-09] MEDS ORDERED: VANCOMYCIN LEVEL IV ONE (02:30)
[2023-06-09] MEDS ORDERED: folic acid 1mg tablet PO SCH (08:00)
[2023-06-09] MEDS ORDERED: thiamine 100mg tablet PO SCH (08:00)
== END 2023-06-07 18:04 | disposition home or self-care (01) | DRG 383 ==
LOC: ER 10:39 → ED HOLD 13:35 → PCU 3S 06-07 01:50
PROVIDERS: ADMIT Internal Medicine; ATTEND Internal Medicine
DX: L02.511 Cutaneous abscess of right hand (principal); I11.0 Hypertensive heart disease with heart failure; I50.9 Heart failure, unspecified; F10.10 Alcohol abuse, uncomplicated; F17.210 Nicotine dependence, cigarettes, uncomplicated; L03.113 Cellulitis of right upper limb; B95.0 Streptococcus, group A, as the cause of diseases classified elsewhere; F15.10 Other stimulant abuse, uncomplicated; I08.3 Combined rheumatic disorders of mitral, aortic and tricuspid valves; L28.0 Lichen simplex chronicus; F31.9 Bipolar disorder, unspecified; Z88.0 Allergy status to penicillin; Z79.82 Long term (current) use of aspirin; Z79.899 Other long term (current) drug therapy; Z82.49 Family history of ischemic heart disease and other diseases of the circulatory system; Z71.6 Tobacco abuse counseling
CPT/HCPCS: 36415; 73120; 76882; 80053; 80202; 80305; 81001; 82948; 83605; 83735; 84145; 85025; 85610; 85730; 86704; 86705; 87040; 87070; 87077; 87081; 87186; 87340; 96365; 96375; 99285; A6258; A6446; A6449; G0378; J1956; J3370; J3411; J3490; J7030; J7040

== ENCOUNTER 2024-07-16 02:03 | Emergency (ER) | payer MEDICAID ==
[~2024-07-16] VITALS: Ht 172.7 cm; Wt 64.0 kg
[~2024-07-16 02:03] MED LIST changes: -AMIT10TA6 PO; -LISI5TAB22 PO; -NICO-631 TD; -NITR0.4T51 SL; -PANT-47 PO; -TRIA15CR61 TOP
[2024-07-16 02:13] VITALS: BP 149/81; PULSE 96; O2SAT 100
[2024-07-16 02:58] VITALS: RESP 14
[2024-07-16] MEDS: ibuprofen tablet 400 MG TABLET PO ONE (03:36)
[2024-07-16] MEDS: acetaminophen 325mg tablet PO ONE (03:37)
[2024-07-16 03:38] VITALS: TEMP 99
== END 2024-07-16 03:49 | disposition home or self-care (01) ==
LOC: ER 02:04
DX: M79.671 Pain in right foot (principal); M79.672 Pain in left foot; Z88.0 Allergy status to penicillin; Z79.82 Long term (current) use of aspirin; Z79.899 Other long term (current) drug therapy
CPT/HCPCS: 99283

== ENCOUNTER 2024-07-19 23:47 | Emergency (ER) | payer MEDICAID ==
[~2024-07-19] VITALS: Ht 172.7 cm; Wt 54.0 kg
[2024-07-20] MEDS: ondansetron/PF 4mg/2ml inj IV ONE (00:07)
[2024-07-20] MEDS: morphine 4 MG/ML inj SYRINge IV ONE (00:08)
[2024-07-20 00:29] LABS: BASOPHILS % (AUTO) 0.3 % (0-1); EOSINOPHILS % (AUTO) 0.1 % (0-6); HEMATOCRIT 34.3 % (42.0-52.0); HEMOGLOBIN 11.5 g/dl (14.0-17.9); LYMPHOCYTES # (AUTO) 0.4 X10'3 (1.1-4.8); LYMPHOCYTES % (AUTO) 5.8 % (21-51); MEAN CORPUSCULAR HEMOGLOBIN 29.9 PG (27.0-31.0); MEAN CORPUSCULAR HGB CONC 33.7 g/dL (33.0-36.5); MEAN CORPUSCULAR VOLUME 88.8 FL (78-98); MEAN PLATELET VOLUME 6.9 FL (7.4-10.4); MONOCYTES # (AUTO) 0.7 X10'3 (0-0.9); MONOCYTES % (AUTO) 9.1 % (2-12); NEUTROPHILS # (AUTO) 6.2 X10'3 (1.8-7.7); NEUTROPHILS % (AUTO) 84.7 % (42-75); PLATELET COUNT 265 X10'3 (140-440); RED BLOOD COUNT 3.86 X10'6 (4.70-6.10); RED CELL DISTRIBUTION WIDTH 14.3 % (11.5-14.5); WHITE BLOOD COUNT 7.3 X10'3 (4.5-11.0)
[2024-07-20 00:30] LABS: ALANINE AMINOTRANSFERASE 24 U/L (12-78); ALBUMIN 3.4 G/DL (3.4-5.0); ALBUMIN/GLOBULIN RATIO 0.8 (1.1-1.5); ALKALINE PHOSPHATASE 87 IU/L (46-116); ANION GAP 10 (8-16); ASPARTATE AMINO TRANSFERASE 25 U/L (10-37); BILIRUBIN,TOTAL 0.5 MG/DL (0.1-1.0); BLOOD UREA NITROGEN 7 MG/DL (7-18); BUN/CREATININE RATIO 8.4 (10.0-20.0); CHLORIDE 101 MMOL/L (99-107); CREATININE 0.83 MG/DL (0.60-1.10); GLUCOSE 120 MG/DL (70-104); POTASSIUM 3.6 MMOL/L (3.5-5.1); SODIUM 137 MMOL/L (135-145); TOTAL CARBON DIOXIDE 25.9 MMOL/L (24-32); TOTAL PROTEIN 7.7 G/DL (6.4-8.2); eCRCL 72 ML/MIN; eGFR > 90 ML/MIN
[2024-07-20 00:33] LABS: LIPASE 16 U/L (16-77)
[2024-07-20] MEDS ORDERED: iohexol 300mg/ml 100ml inj. ONE (00:36)
[2024-07-20 01:16] VITALS: TEMP 99.2
[2024-07-20 03:08] LABS: BILIRUBIN,URINE NEGATIVE (Neg); CLARITY,URINE CLEAR (Clear); COLOR,URINE YELLOW (Yellow); GLUCOSE, URINE NEGATIVE (Neg); KETONES,URINE NEGATIVE (Neg); LEUKOCYTE ESTERASE ,URINE NEGATIVE (Neg); NITRITES, URINE NEGATIVE (Neg); OCCULT BLOOD,URINE NEGATIVE (Neg); PH,URINE 6.5 (4.8-8.0); PROTEIN,URINE NEGATIVE (Neg); UA COLLECTION TYPE CLN CATCH MIDSTREAM; UROBILINOGEN,URINE 0.2 E.U/dL (0.2-1.0)
[2024-07-20 03:10] VITALS: BP 128/81; PULSE 98; RESP 16; O2SAT 98
[2024-07-20] MEDS ORDERED: DICY20TA17 PO (03:14)
[2024-07-20] MEDS ORDERED: ONDA-243 PO (03:14)
== END 2024-07-20 03:19 | disposition home or self-care (01) ==
LOC: ER 23:48
DX: R10.11 Right upper quadrant pain (principal); F31.9 Bipolar disorder, unspecified; Z88.0 Allergy status to penicillin; Z79.899 Other long term (current) drug therapy; Z79.82 Long term (current) use of aspirin
CPT/HCPCS: 36415; 71045; 74177; 76700; 80053; 81003; 83690; 84484; 85025; 93005; 96374; 96375; 99285; J2270; J2405; Q9967

== ENCOUNTER 2024-08-08 18:40 | Emergency (ER) | payer MEDICAID ==
[~2024-08-08] VITALS: Ht 172.7 cm; Wt 65.9 kg
[~2024-08-08 18:40] MED LIST changes: +DICY20TA17 PO; +ONDA-243 PO
[2024-08-08] MEDS: LORazepam 2 mg/ml vial IV ONE (19:06)
[2024-08-08] MEDS: aspirin 325mg tablet PO ONE (19:17)
[2024-08-08] MEDS: ketorolac trometh 15mg/ml vial 15 MG/ML ML IV ONE (19:19)
[2024-08-08 19:26] LABS: BASOPHILS % (AUTO) 0.4 % (0-1); EOSINOPHILS # (AUTO) 0.1 X10'3 (0-0.9); EOSINOPHILS % (AUTO) 0.9 % (0-6); HEMATOCRIT 31.6 % (42.0-52.0); HEMOGLOBIN 10.8 g/dl (14.0-17.9); LYMPHOCYTES # (AUTO) 0.8 X10'3 (1.1-4.8); LYMPHOCYTES % (AUTO) 9.8 % (21-51); MEAN CORPUSCULAR HEMOGLOBIN 29.4 PG (27.0-31.0); MEAN CORPUSCULAR HGB CONC 34.2 g/dL (33.0-36.5); MEAN PLATELET VOLUME 6.8 FL (7.4-10.4); MONOCYTES # (AUTO) 0.8 X10'3 (0-0.9); MONOCYTES % (AUTO) 9.7 % (2-12); NEUTROPHILS # (AUTO) 6.8 X10'3 (1.8-7.7); NEUTROPHILS % (AUTO) 79.2 % (42-75); PLATELET COUNT 467 X10'3 (140-440); RED BLOOD COUNT 3.67 X10'6 (4.70-6.10); RED CELL DISTRIBUTION WIDTH 13.8 % (11.5-14.5); WHITE BLOOD COUNT 8.6 X10'3 (4.5-11.0)
[2024-08-08 19:28] LABS: ALANINE AMINOTRANSFERASE 17 U/L (12-78); ALBUMIN 2.8 G/DL (3.4-5.0); ALBUMIN/GLOBULIN RATIO 0.5 (1.1-1.5); ALKALINE PHOSPHATASE 119 IU/L (46-116); ANION GAP 6 (8-16); ASPARTATE AMINO TRANSFERASE 14 U/L (10-37); BILIRUBIN,TOTAL 0.3 MG/DL (0.1-1.0); BLOOD UREA NITROGEN 13 MG/DL (7-18); BUN/CREATININE RATIO 13.4 (10.0-20.0); CALCIUM 8.7 MG/DL (8.5-10.1); CHLORIDE 98 MMOL/L (99-107); CREATININE 0.97 MG/DL (0.60-1.10); GLUCOSE 130 MG/DL (70-104); POTASSIUM 4.3 MMOL/L (3.5-5.1); SODIUM 134 MMOL/L (135-145); TOTAL CARBON DIOXIDE 30.3 MMOL/L (24-32); TOTAL PROTEIN 8.2 G/DL (6.4-8.2); eCRCL 76 ML/MIN; eGFR > 90 ML/MIN
[2024-08-08 19:31] LABS: D-DIMER 6.08 MG/L FEU (0-0.50)
[2024-08-08 19:35] LABS: PRO BRAIN NATRIURETIC PEPTIDE 1903 PG/ML (0-125)
[2024-08-08] MEDS ORDERED: iohexol 350MG/ML 100ml bottle IV ONE (20:06)
[2024-08-08 22:28] LABS: C-REACTIVE PROTEIN 13.5 MG/DL (0.0-0.5); FREE T4 (FREE THYROXINE) 1.12 NG/DL (0.73-1.40); THYROID STIMULATING HORMONE 1.48 ulU/ml (0.34-4.50)
[2024-08-08 22:56] VITALS: RESP 16
[2024-08-08] MEDS: HYDROcodone/acetaminophen 5mg/325mg tablet PO ONE (22:56)
[2024-08-09 00:30] VITALS: BP 128/80; PULSE 89; TEMP 98.7; O2SAT 99
== END 2024-08-09 00:37 | disposition home or self-care (01) ==
LOC: ER 18:40
DX: R07.89 Other chest pain (principal); I31.39 Other pericardial effusion (noninflammatory); F41.9 Anxiety disorder, unspecified; Z88.0 Allergy status to penicillin; Z79.82 Long term (current) use of aspirin
CPT/HCPCS: 36415; 71045; 71275; 80053; 83880; 84439; 84443; 84484; 85025; 85379; 85651; 86140; 93005; 96374; 96375; 99285; J1885; J2060; Q9967

== ENCOUNTER 2024-08-12 10:38 | Inpatient (IN) | payer MEDICAID ==
[~2024-08-12] VITALS: Ht 172.7 cm; Wt 62.0 kg
[~2024-08-12 10:38] MED LIST changes: +adenosine 3mg/ml 2ml vial IV ONE
[2024-08-12] MEDS: adenosine 3mg/ml 2ml vial IV ONE ×2 (10:47→10:51)
[2024-08-12] MEDS: normal saline 1000ml 1,000 ML IV ONE (11:01)
[2024-08-12 11:16] LABS: BASOPHILS % (AUTO) 0.4 % (0-1); EOSINOPHILS % (AUTO) 0.1 % (0-6); HEMOGLOBIN 10.2 g/dl (14.0-17.9); LYMPHOCYTES # (AUTO) 0.6 X10'3 (1.1-4.8); MEAN CORPUSCULAR HEMOGLOBIN 29.1 PG (27.0-31.0); MEAN CORPUSCULAR HGB CONC 33.9 g/dL (33.0-36.5); MEAN CORPUSCULAR VOLUME 85.7 FL (78-98); MEAN PLATELET VOLUME 6.8 FL (7.4-10.4); MONOCYTES # (AUTO) 0.8 X10'3 (0-0.9); MONOCYTES % (AUTO) 9.7 % (2-12); NEUTROPHILS # (AUTO) 6.5 X10'3 (1.8-7.7); NEUTROPHILS % (AUTO) 81.8 % (42-75); PLATELET COUNT 519 X10'3 (140-440); RED CELL DISTRIBUTION WIDTH 14.1 % (11.5-14.5)
[2024-08-12 11:35] LABS: ALANINE AMINOTRANSFERASE 39 U/L (12-78); ALBUMIN 2.7 G/DL (3.4-5.0); ALBUMIN/GLOBULIN RATIO 0.5 (1.1-1.5); ALKALINE PHOSPHATASE 328 IU/L (46-116); ANION GAP 12 (8-16); ASPARTATE AMINO TRANSFERASE 59 U/L (10-37); BLOOD UREA NITROGEN 10 MG/DL (7-18); BUN/CREATININE RATIO 6.9 (10.0-20.0); CHLORIDE 97 MMOL/L (99-107); CREATININE 1.45 MG/DL (0.60-1.10); GLUCOSE 110 MG/DL (70-104); SODIUM 132 MMOL/L (135-145); THYROID STIMULATING HORMONE 2.47 ulU/ml (0.34-4.50); TOTAL CARBON DIOXIDE 22.7 MMOL/L (24-32); TOTAL PROTEIN 8.3 G/DL (6.4-8.2); eCRCL 48 ML/MIN; eGFR 60 ML/MIN
[2024-08-12 11:36] LABS: POTASSIUM 6.1 MMOL/L (3.5-5.1)
[2024-08-12] MEDS: normal saline 1000ML IV soln IVB ONE (12:13)
[2024-08-12 13:42] LABS: ALBUMIN 2.3 G/DL (3.4-5.0); ANION GAP 11 (8-16); BLOOD UREA NITROGEN 10 MG/DL (7-18); BUN/CREATININE RATIO 8.1 (10.0-20.0); CALCIUM 8.2 MG/DL (8.5-10.1); CHLORIDE 101 MMOL/L (99-107); CREATININE 1.23 MG/DL (0.60-1.10); GLUCOSE 95 MG/DL (70-104); POTASSIUM 4.8 MMOL/L (3.5-5.1); SODIUM 135 MMOL/L (135-145); TOTAL CARBON DIOXIDE 23.1 MMOL/L (24-32); eCRCL 56 ML/MIN; eGFR 73 ML/MIN
[2024-08-12] MEDS ORDERED: magnesium hydroxide 30ml (MOM) UD suspension PO PRN (16:55)
[2024-08-12] MEDS ORDERED: morphine 2 MG/ML inj. syringe IV PRN (16:55)
[2024-08-12] MEDS ORDERED: acetaminophen 325mg tablet PO PRN (16:55)
[2024-08-12] MEDS ORDERED: ondansetron/PF 4mg/2ml inj IV PRN (16:55)
[2024-08-12 20:00] VITALS: BP_SYST 134; BP_SYST 135; BP_SYST 138; BP_DIAS 83; BP_DIAS 86; BP_DIAS 88; PULSE 107; PULSE 114; PULSE 98
[2024-08-12 21:00] VITALS: BP 134/86; PULSE 107; RESP 13; TEMP 98.9; O2SAT 98
[2024-08-12] MEDS: docusate sod 100mg capsule PO SCH (21:35)
[2024-08-12 22:00] VITALS: BP 139/86; PULSE 106; RESP 19; TEMP 99.1; O2SAT 100
[2024-08-13] VITALS (10 sets, daily range): BP systolic 94–142; BP diastolic 67–91; PULSE 80–111; RESP 15–19; TEMP 97–99.7; O2SAT 91–100
[2024-08-13] MEDS: Melatonin 3mg tablet PO PRN (00:15)
[2024-08-13] MEDS: acetaminophen 325mg tablet PO PRN (00:16)
[2024-08-13 06:05] LABS: BASOPHILS % (AUTO) 0.4 % (0-1); EOSINOPHILS # (AUTO) 0.1 X10'3 (0-0.9); EOSINOPHILS % (AUTO) 1.1 % (0-6); HEMOGLOBIN 9.7 g/dl (14.0-17.9); LYMPHOCYTES # (AUTO) 0.9 X10'3 (1.1-4.8); LYMPHOCYTES % (AUTO) 15.4 % (21-51); MEAN CORPUSCULAR HEMOGLOBIN 28.5 PG (27.0-31.0); MEAN CORPUSCULAR HGB CONC 33.5 g/dL (33.0-36.5); MEAN CORPUSCULAR VOLUME 85.1 FL (78-98); MONOCYTES # (AUTO) 0.9 X10'3 (0-0.9); MONOCYTES % (AUTO) 14.6 % (2-12); NEUTROPHILS # (AUTO) 4.2 X10'3 (1.8-7.7); NEUTROPHILS % (AUTO) 68.5 % (42-75); PLATELET COUNT 488 X10'3 (140-440); WHITE BLOOD COUNT 6.1 X10'3 (4.5-11.0)
[2024-08-13 06:35] LABS: ALBUMIN 2.2 G/DL (3.4-5.0); ANION GAP 9 (8-16); BLOOD UREA NITROGEN 17 MG/DL (7-18); BUN/CREATININE RATIO 14.3 (10.0-20.0); CALCIUM 8.9 MG/DL (8.5-10.1); CHLORIDE 103 MMOL/L (99-107); CREATININE 1.19 MG/DL (0.60-1.10); GLUCOSE 96 MG/DL (70-104); POTASSIUM 4.3 MMOL/L (3.5-5.1); SODIUM 137 MMOL/L (135-145); TOTAL CARBON DIOXIDE 24.9 MMOL/L (24-32); eCRCL 58 ML/MIN; eGFR 75 ML/MIN
[2024-08-13] MEDS: sertraline 50mg tablet PO SCH (08:35)
[2024-08-13] MEDS ORDERED: SERT25TA PO (12:49)
[2024-08-13] MEDS ORDERED: RAME8TAB24 PO (12:49)
[2024-08-13] MEDS: HYDROcodone/acetaminophen 5mg/325mg tablet PO PRN (14:19)
[2024-08-13] MEDS: pneumococcal 23-VAL P-sac vacc 25 mcg/0.5ml vial IMVAC ONE (14:46)
[2024-08-13] MEDS: morphine 2 MG/ML inj. syringe IV PRN (20:05)
[2024-08-14] VITALS (9 sets, daily range): BP systolic 105–151; BP diastolic 58–82; PULSE 73–105; RESP 13–21; TEMP 97–98.6; O2SAT 99–100
[2024-08-14 06:04] LABS: ALBUMIN 2.3 G/DL (3.4-5.0); ANION GAP 10 (8-16); BLOOD UREA NITROGEN 11 MG/DL (7-18); BUN/CREATININE RATIO 11.1 (10.0-20.0); CALCIUM 9.3 MG/DL (8.5-10.1); CHLORIDE 96 MMOL/L (99-107); CREATININE 0.99 MG/DL (0.60-1.10); GLUCOSE 97 MG/DL (70-104); POTASSIUM 4.3 MMOL/L (3.5-5.1); SODIUM 132 MMOL/L (135-145); TOTAL CARBON DIOXIDE 25.7 MMOL/L (24-32); eCRCL 70 ML/MIN; eGFR > 90 ML/MIN
[2024-08-14 06:21] LABS: BASOPHILS % (AUTO) 0.3 % (0-1); EOSINOPHILS % (AUTO) 0.4 % (0-6); HEMATOCRIT 29.5 % (42.0-52.0); HEMOGLOBIN 10.1 g/dl (14.0-17.9); LYMPHOCYTES # (AUTO) 0.8 X10'3 (1.1-4.8); MEAN CORPUSCULAR HEMOGLOBIN 28.9 PG (27.0-31.0); MEAN CORPUSCULAR HGB CONC 34.1 g/dL (33.0-36.5); MEAN CORPUSCULAR VOLUME 84.8 FL (78-98); MEAN PLATELET VOLUME 7.2 FL (7.4-10.4); MONOCYTES % (AUTO) 13.6 % (2-12); NEUTROPHILS # (AUTO) 5.3 X10'3 (1.8-7.7); NEUTROPHILS % (AUTO) 74.7 % (42-75); PLATELET COUNT 536 X10'3 (140-440); RED BLOOD COUNT 3.48 X10'6 (4.70-6.10); WHITE BLOOD COUNT 7.1 X10'3 (4.5-11.0)
[2024-08-14] MEDS: aspirin 81mg, enteric-coated 1 TAB TABLET.DR PO SCH (07:53)
[2024-08-14] MEDS: metoprolol tartrate 25mg tablet PO SCH (07:54)
[2024-08-14] MEDS ORDERED: sertraline 50mg tablet PO SCH (08:00)
[2024-08-14 16:36] LABS: OCCULT BLOOD STOOL NEGATIVE (Neg)
[2024-08-14] MEDS: mag hydrox/Alum hydrox/simeth 30ml oral suspension PO PRN (17:59)
[2024-08-14] MEDS: zolpidem 5mg tablet PO SCH (20:40)
[2024-08-14] MEDS: atorvastatin 20mg tablet PO SCH (20:40)
[2024-08-15 02:00] VITALS: BP 119/76; PULSE 104; RESP 18; TEMP 98.1; O2SAT 94
[2024-08-15 06:00] VITALS: BP 119/73; PULSE 96; RESP 16; TEMP 97.4; O2SAT 98
[2024-08-15 06:16] LABS: BASOPHILS % (AUTO) 0.4 % (0-1); EOSINOPHILS % (AUTO) 0.8 % (0-6); HEMOGLOBIN 10.5 g/dl (14.0-17.9); LYMPHOCYTES # (AUTO) 0.7 X10'3 (1.1-4.8); LYMPHOCYTES % (AUTO) 10.9 % (21-51); MEAN CORPUSCULAR HEMOGLOBIN 28.8 PG (27.0-31.0); MEAN CORPUSCULAR HGB CONC 33.7 g/dL (33.0-36.5); MEAN CORPUSCULAR VOLUME 85.3 FL (78-98); MEAN PLATELET VOLUME 6.9 FL (7.4-10.4); MONOCYTES # (AUTO) 0.9 X10'3 (0-0.9); MONOCYTES % (AUTO) 14.9 % (2-12); NEUTROPHILS # (AUTO) 4.6 X10'3 (1.8-7.7); PLATELET COUNT 538 X10'3 (140-440); RED BLOOD COUNT 3.64 X10'6 (4.70-6.10); RED CELL DISTRIBUTION WIDTH 14.3 % (11.5-14.5); WHITE BLOOD COUNT 6.3 X10'3 (4.5-11.0)
[2024-08-15 07:06] LABS: ALBUMIN 2.5 G/DL (3.4-5.0); ANION GAP 9 (8-16); BLOOD UREA NITROGEN 16 MG/DL (7-18); CALCIUM 9.6 MG/DL (8.5-10.1); CHLORIDE 95 MMOL/L (99-107); CREATININE 1.07 MG/DL (0.60-1.10); GLUCOSE 122 MG/DL (70-104); POTASSIUM 4.8 MMOL/L (3.5-5.1); SODIUM 132 MMOL/L (135-145); TOTAL CARBON DIOXIDE 27.8 MMOL/L (24-32); eCRCL 64 ML/MIN; eGFR 85 ML/MIN
[2024-08-15] MEDS: heparin, porcine 5000 units/ml vial SQ SCH (07:43)
[2024-08-15 08:00] VITALS: RESP 16; O2SAT 98
[2024-08-15] MEDS ORDERED: HYDR-3965 PO (09:30)
[2024-08-15] MEDS ORDERED: FURO-150 PO (09:30)
[2024-08-15 11:00] VITALS: BP 104/65; PULSE 66; RESP 16; TEMP 98; O2SAT 98
[2024-08-15 13:15] VITALS: RESP 18
== END 2024-08-15 14:28 | disposition home or self-care (01) | DRG 194 ==
LOC: ER 10:38 → ED HOLD 16:57 → PCU 3S 19:55
PROVIDERS: ADMIT Internal Medicine; ATTEND Internal Medicine
DX: I50.23 Acute on chronic systolic (congestive) heart failure (principal); N17.0 Acute kidney failure with tubular necrosis; I31.39 Other pericardial effusion (noninflammatory); F17.210 Nicotine dependence, cigarettes, uncomplicated; R55 Syncope and collapse; F31.9 Bipolar disorder, unspecified; D64.9 Anemia, unspecified; Z82.49 Family history of ischemic heart disease and other diseases of the circulatory system; Z88.0 Allergy status to penicillin; Z79.82 Long term (current) use of aspirin; Z79.899 Other long term (current) drug therapy
CPT/HCPCS: 36415; 71045; 80048; 80053; 82272; 83880; 84443; 84484; 85025; 87081; 90732; 93005; 93306; 93925; 93970; G0378; J0153; J1644; J2270; J7030

== ENCOUNTER 2024-10-09 19:33 | Emergency (ER) | payer MEDICAID ==
[~2024-10-09] VITALS: Ht 172.7 cm; Wt 65.0 kg
[~2024-10-09 19:33] MED LIST changes: -DICY20TA17 PO; +FURO-150 PO; -ONDA-243 PO; +RAME8TAB24 PO; +SERT25TA PO; -adenosine 3mg/ml 2ml vial IV ONE
[2024-10-09 19:38] VITALS: TEMP 98.7
[2024-10-09 20:27] LABS: BASOPHILS % (AUTO) 0.3 % (0-1); EOSINOPHILS # (AUTO) 0.1 X10'3 (0-0.9); EOSINOPHILS % (AUTO) 0.7 % (0-6); HEMATOCRIT 30.6 % (42.0-52.0); HEMOGLOBIN 10.2 g/dl (14.0-17.9); LYMPHOCYTES # (AUTO) 1.3 X10'3 (1.1-4.8); LYMPHOCYTES % (AUTO) 13.5 % (21-51); MEAN CORPUSCULAR HEMOGLOBIN 26.1 PG (27.0-31.0); MEAN CORPUSCULAR HGB CONC 33.4 g/dL (33.0-36.5); MEAN CORPUSCULAR VOLUME 78.1 FL (78-98); MEAN PLATELET VOLUME 6.6 FL (7.4-10.4); MONOCYTES # (AUTO) 0.6 X10'3 (0-0.9); MONOCYTES % (AUTO) 5.6 % (2-12); NEUTROPHILS # (AUTO) 7.8 X10'3 (1.8-7.7); NEUTROPHILS % (AUTO) 79.9 % (42-75); PLATELET COUNT 351 X10'3 (140-440); RED BLOOD COUNT 3.92 X10'6 (4.70-6.10); RED CELL DISTRIBUTION WIDTH 18.1 % (11.5-14.5); WHITE BLOOD COUNT 9.8 X10'3 (4.5-11.0)
[2024-10-09] MEDS: ketorolac trometh 15mg/ml vial 15 MG/ML ML IV ONE (20:42)
[2024-10-09 20:58] LABS: ALANINE AMINOTRANSFERASE 17 U/L (12-78); ALBUMIN/GLOBULIN RATIO 0.6 (1.1-1.5); ALKALINE PHOSPHATASE 101 IU/L (46-116); ANION GAP 9 (8-16); ASPARTATE AMINO TRANSFERASE 12 U/L (10-37); BILIRUBIN,TOTAL 0.2 MG/DL (0.1-1.0); BLOOD UREA NITROGEN 9 MG/DL (7-18); BUN/CREATININE RATIO 12.2 (10.0-20.0); CALCIUM 8.7 MG/DL (8.5-10.1); CHLORIDE 98 MMOL/L (99-107); CREATININE 0.74 MG/DL (0.60-1.10); GLUCOSE 87 MG/DL (70-104); POTASSIUM 3.9 MMOL/L (3.5-5.1); SODIUM 135 MMOL/L (135-145); TOTAL CARBON DIOXIDE 28.3 MMOL/L (24-32); TOTAL PROTEIN 8.2 G/DL (6.4-8.2); eCRCL 98 ML/MIN; eGFR > 90 ML/MIN
[2024-10-09 21:09] LABS: PRO BRAIN NATRIURETIC PEPTIDE 1199 PG/ML (0-125)
[2024-10-09 21:34] LABS: D-DIMER 1.03 MG/L FEU (0-0.50)
[2024-10-09] MEDS: acetaminophen 1,000mg/100ml IV 100 ML IV STA (22:14)
[2024-10-09] MEDS ORDERED: SERT25TA PO (23:06)
[2024-10-09] MEDS ORDERED: RAME8TAB24 PO (23:06)
[2024-10-09] MEDS ORDERED: METO-395 PO (23:06)
[2024-10-09] MEDS ORDERED: ATOR20TA PO (23:06)
[2024-10-09 23:33] VITALS: BP 137/81; PULSE 112; RESP 19; O2SAT 97
== END 2024-10-09 23:35 | disposition home or self-care (01) ==
LOC: ER 19:34
DX: R07.89 Other chest pain (principal); I50.9 Heart failure, unspecified; Z88.0 Allergy status to penicillin; Z79.899 Other long term (current) drug therapy
CPT/HCPCS: 36415; 71045; 80053; 83880; 84145; 84484; 85025; 85379; 93005; 96374; 96375; 99285; J0131; J1885

== ENCOUNTER 2025-02-15 14:39 | Emergency (ER) | payer MEDICAID ==
[~2025-02-15] VITALS: Ht 177.8 cm; Wt 64.0 kg
--- NOTE | 2025-02-15 14:45 | ELECTROCARDIOGRAPH REPORT ---
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
[2025-02-15 15:02] LABS: BASOPHILS % (AUTO) 0.6 % (0-1); EOSINOPHILS # (AUTO) 0.1 X10'3 (0-0.9); EOSINOPHILS % (AUTO) 2.5 % (0-6); HEMATOCRIT 35.5 % (42.0-52.0); HEMOGLOBIN 11.7 g/dl (14.0-17.9); LYMPHOCYTES # (AUTO) 1.2 X10'3 (1.1-4.8); LYMPHOCYTES % (AUTO) 22.6 % (21-51); MEAN CORPUSCULAR HEMOGLOBIN 27.8 PG (27.0-31.0); MEAN CORPUSCULAR HGB CONC 32.9 g/dL (33.0-36.5); MEAN CORPUSCULAR VOLUME 84.7 FL (78-98); MONOCYTES # (AUTO) 0.6 X10'3 (0-0.9); MONOCYTES % (AUTO) 10.6 % (2-12); NEUTROPHILS # (AUTO) 3.3 X10'3 (1.8-7.7); NEUTROPHILS % (AUTO) 63.7 % (42-75); PLATELET COUNT 227 X10'3 (140-440); RED CELL DISTRIBUTION WIDTH 14.5 % (11.5-14.5); WHITE BLOOD COUNT 5.2 X10'3 (4.5-11.0)
[2025-02-15 15:16] LABS: ALBUMIN 3.3 G/DL (3.4-5.0); ANION GAP 10 (8-16); BLOOD UREA NITROGEN 20 MG/DL (7-18); BUN/CREATININE RATIO 12.6 (10.0-20.0); CALCIUM 8.6 MG/DL (8.5-10.1); CHLORIDE 100 MMOL/L (99-107); CREATININE 1.59 MG/DL (0.60-1.10); GLUCOSE 88 MG/DL (70-104); SODIUM 138 MMOL/L (135-145); TOTAL CARBON DIOXIDE 28.2 MMOL/L (24-32); eCRCL 45 ML/MIN; eGFR 54 ML/MIN
--- NOTE | 2025-02-15 15:19 | RADIOLOGY REPORT ---
CHEST RADIOGRAPH Indication: CP Technique: Single frontal view of the chest was obtained Comparison: DI CHEST,SINGLE VIEW on DOS: 10/09/24, DI CHEST,SINGLE VIEW on DOS: 08/12/24, DI CHEST,SIN GLE VIEW on DOS: 08/08/24, DI CHEST,SINGLE VIEW on DOS: 07/20/24, DI CHEST,SINGLE VIEW on DOS: 05/02/23 FINDINGS: Lines and Tubes: None Lungs: No focal consolidation. Pleura: No effusion. No pneumothorax. Cardiomediastinal contours: Unremarkable Bones: No acute osseous abnormality. IMPRESSION: No acute cardiopulmonary disease.
--- NOTE | 2025-02-15 16:11 | Physician Documentation ---
History of Present Illness ~ Chief Complaint: Dizziness Stated Complaint: DIZZY Time Seen by MD: 15:50 Primary Medical Doctor: NONE HPI 59-year-old male presenting with transient dizziness. Patient states that he was at his psychiatrist's appointment earlier today when he suddenly started feeling lightheaded. He states that this happened when he got up from a seated position. He sat back down and EMS was called and they brought him to the emergency department. Patient states that currently he is no longer lightheaded. He got up several times in the ED and states that he feels fine. Denies any chest pain, shortness of breath or any other associated symptoms. Medication Reconciliation Allergies: Coded Allergies: Penicillins (Verified Allergy, Unknown, 08/08/24) Scheduled Aspirin (Aspirin EC), 1 TAB PO DAILY, (Reported) Atorvastatin Calcium* (Lipitor*), 1 TABLET PO HS Furosemide (Lasix), 20 MG PO DAILY Metoprolol Succinate (Metoprolol Succinate), 1 TAB PO DAILY Ramelteon (Ramelteon), 1 TAB PO HS Sertraline Hcl* (Zoloft*), 2 TAB PO DAILY Past Medical History Past Medical History: *CARDIOVASCULAR*, Congestive Heart Failure, Bipolar Past Surgical History: noncontributory Patient History: FH: heart disease FATHER MOTHER Drug Use: none Physical Exam Vital Signs: Temperature: 98.4, Source: Oral, Heart Rate: 66, Respiratory Rate: 16, BP: 97/59, Pulse Oximetry: 96, Weight: 64.000 Oxygen Flow Rate: 0 Physical Exam I have reviewed the triage vitals. CONST: Well developed and well nourished. In no acute distress HENT: Head Atraumatic EYES: Pupils are equal, round and reactive to light. Normal conjunctiva NECK: Normal range of motion. Supple. CARDIO: Normal rate and regular rhythm. No murmurs, rubs, or gallops. S1, S2. PULM/CHEST: No respiratory distress. Lungs clear to auscultation. No wheeze ABD: Soft and nontender. Nondistended. Bowel sounds normal. No guarding. : Exam deferred MSK: No edema. No deformity. NEURO: Alert and oriented to person, place and time. Moving all extremities SKIN: Warm and dry. PSYCH: Normal mood and affect. Good eye contact. Progress Results/Orders Results/Orders Orders - CHELSEA DELACRUZ MD Chest,Single View (02/15/25 14:59) Monitor (02/15/25 14:41) Saline Lock (02/15/25 14:41) Oxygen (02/15/25 14:41) Hs Troponin I W Calculations (02/15/25 14:41) Hs Troponin I W Calculations (02/15/25 16:41) Hs Troponin I W Calculations (02/15/25 17:41) Potassium Cl Sr Tablet (K-Dur Tablet) (02/15/25 16:08) Completed Orders - CHELSEA DELACRUZ MD Chest,Single View (02/15/25 14:59) Cbc/Diff (02/15/25 14:41) BMP (02/15/25 14:41) Electrocardiogram (02/15/25 14:41) Vital Signs 02/15/25 02/15/25 14:43 16:04 Temp 98.6 98.4 Pulse 74 66 Resp 18 16 B/P (MAP) 96/52 97/59 (72) Pulse Ox 98 96 O2 Flow Rate 0 0 Laboratory Tests Test 02/15/25 14:49 White Blood Count 5.2 Red Blood Count 4.20 L Hemoglobin 11.7 L Hematocrit 35.5 L Mean Corpuscular Volume 84.7 Mean Corpuscular Hemoglobin 27.8 Mean Corpuscular Hemoglobin Concent 32.9 L Red Cell Distribution Width 14.5 Platelet Count 227 Mean Platelet Volume 7.0 L Neutrophils (%) (Auto) 63.7 Lymphocytes (%) (Auto) 22.6 Monocytes (%) (Auto) 10.6 Eosinophils (%) (Auto) 2.5 Basophils (%) (Auto) 0.6 Neutrophils # (Auto) 3.3 Lymphocytes # (Auto) 1.2 Monocytes # (Auto) 0.6 Eosinophils # (Auto) 0.1 Basophils # (Auto) 0.0 CBC Comment Sodium Level 138 Potassium Level 3.0 *L Chloride Level 100 Carbon Dioxide Level 28.2 Anion Gap 10 Blood Urea Nitrogen 20 H Creatinine 1.59 H Estimated GFR/1.73 m2 54 BUN/Creatinine Ratio 12.6 Glucose Level 88 Calcium Level 8.6 Albumin 3.3 L Chemistry Comments EKG/XRAY/CT/US/VASC/MRI EKG : Additional Comment EKG as interpreted by ED indicating normal sinus rhythm with a rate of 73 beats per minute. Normal axis. No ischemia Chest X-Ray : Additional Comments CHEST RADIOGRAPH Indication: CP Technique: Single frontal view of the chest was obtained Comparison: DI CHEST,SINGLE VIEW on DOS: 10/09/24, DI CHEST,SINGLE VIEW on DOS: 08/12/24, DI CHEST,SINGLE VIEW on DOS: 08/08/24, DI CHEST,SINGLE VIEW on DOS: 07/20/24, DI CHEST,SINGLE VIEW on DOS: 05/02/23 FINDINGS: Lines and Tubes: None Lungs: No focal consolidation. Pleura: No effusion. No pneumothorax. Cardiomediastinal contours: Unremarkable Bones: No acute osseous abnormality. IMPRESSION: No acute cardiopulmonary disease. Departure Disposition: HOME / SELF CARE / HOMELESS Impression: Primary Impression: Hypokalemia Condition: Improved Discharge Instructions: Dizziness, Hypokalemia Additional Instructions: Please continue your medications as prescribed. Your potassium was low here today but it was replaced. Continue follow up closely with your primary care physician and your internal audit director. Return to the ER with any acutely worsening symptoms. Referrals: NO PRIMARY CARE PROVIDER (PCP) CHELSEA DELACRUZ MD Feb 15, 2025 16:11
[2025-02-15] MEDS: potassium Cl 20 mEq SR tablet PO STA (16:19)
[2025-02-15 16:24] VITALS: BP 97/59; PULSE 72; RESP 16; TEMP 98.4; O2SAT 95
== END 2025-02-15 16:25 | disposition home or self-care (01) ==
LOC: ER 14:40
DX: E87.6 Hypokalemia (principal); R42 Dizziness and giddiness; F31.9 Bipolar disorder, unspecified; I50.9 Heart failure, unspecified; Z88.0 Allergy status to penicillin; Z79.899 Other long term (current) drug therapy; Z79.82 Long term (current) use of aspirin
CPT/HCPCS: 36415; 71045; 80048; 84484; 85025; 93005; 99285

== ENCOUNTER 2025-02-22 15:02 | Inpatient (IN) | payer MEDICAID ==
[~2025-02-22] VITALS: Ht 172.7 cm; Wt 58.0 kg
--- NOTE | 2025-02-22 15:25 | Physician Documentation ---
History of Present Illness ~ Chief Complaint: Syncope Stated Complaint: HEAT EXHAUSTION Time Seen by MD: 16:53 OK to notify your PCP?: Yes Primary Medical Doctor: NONE Mode of Arrival: POV Exam Limitations: no limitations HPI 59-year-old male presents via EMS after having a witnessed syncope episode while he was standing out in the heat. He had a low blood pressure for EMS and on arrival. He does take metoprolol and lisinopril at home for hypertension and has been taking as prescribed. He denies any chest pain or dizziness or other medical complaints at this time. He reports that he has had 1 other episode of syncope and it was because he had a low potassium level. Additional note by Zuhair Kovacs DO: I took over the care of this patient from previous physician. I reviewed any previous notes available, obtain my own history, review of systems and physical examination was performed by myself. This is a very pleasant 59-year-old gentleman with a known history of smoking, high blood pressure, congestive heart failure with unknown ejection fraction, who presented for evaluation of syncopal event. The gentleman states that there was no prodrome, and describes it as I did done fell out and I never fell out in my life. He denies any chest pain or shortness a breath accompanying this. He states that he had an episode of lightheadedness a week ago when he was evaluated at this facility and was discharged after being diagnosed with h ypokalemia. He continues to smoke. Denies any nausea, vomiting or diarrhea. Medication Reconciliation Allergies: Coded Allergies: Penicillins (Verified Allergy, Unknown, 02/22/25) Scheduled Aspirin (Aspirin EC), 1 TAB PO DAILY, (Reported) Atorvastatin Calcium* (Lipitor*), 1 TABLET PO HS Furosemide (Lasix), 20 MG PO DAILY Metoprolol Succinate (Metoprolol Succinate), 1 TAB PO DAILY Ramelteon (Ramelteon), 1 TAB PO HS Sertraline Hcl* (Zoloft*), 2 TAB PO DAILY Past Medical History Past Medical History: *CARDIOVASCULAR*, Congestive Heart Failure, Bipolar Past Surgical History: noncontributory Patient History: FH: heart disease FATHER MOTHER Drug Use: none Review of Systems All Other Systems at this time: Reviewed and Negative ROS 10 point review of systems was performed and unless noted above in HPI is negative for acute process/complaint. Physical Exam Vital Signs: Temperature: 97.6, Source: Oral, Heart Rate: 86, Respiratory Rate: 16, BP: 88/51, Pulse Oximetry: 98, Weight: 58.000 Pulse Oximetry Reflects: adequate oxygenation Physical Exam General: Alert, no distress. HEENT: No injection, moist mucous membranes. Neck: Full range of motion. Respiratory: No respiratory distress, equal chest rise and fall. Chest: No accessory muscle use. Cardiovascular: Regular rate and rhythm. Gastrointestinal: Nondistended. Extremities: Normal range of motion, no deformity. Neurologic: Oriented x4. Psychiatric: Normal mood and affect. Skin: Normal color, warm and dry. Progress Results/Orders Results/Orders Orders - ZUHAIR KOVACS DO Agustina Hospitalist (02/22/25 17:00) Fill Out Med Reconciliation (02/22/25 17:00) Completed Orders - ZUHAIR KOVACS DO Normal Saline 500ml Iv Soln (Sodium Chlo (02/22/25 17:00) Medications Received in ER Medications (Trade) Dose Ordered Sig/Taisha Route PRN Reason Start Time Stop Time Status Last Admin Dose Admin Sodium Chloride 500 ml @ 1,000 mls/hr ONCE ONCE IV 02/22/25 17:00 02/22/25 17:30 DC 02/22/25 17:04 1,000 MLS/HR Sodium Chloride 1,000 ml @ 100 mls/hr Q10H IV 02/22/25 17:15 02/22/25 17:53 100 MLS/HR Vital Signs 02/22/25 02/22/25 02/22/25 02/22/25 15:13 16:29 16:31 18:03 Temp 97.6 97.6 97.6 Pulse 86 72 85 Resp 16 18 19 18 B/P (MAP) 88/51 97/61 (73) 147/80 (102) Pulse Ox 98 97 98 Laboratory Tests Test 02/22/25 15:38 White Blood Count 4.7 Red Blood Count 3.96 L Hemoglobin 11.4 L Hematocrit 33.4 L Mean Corpuscular Volume 84.5 Mean Corpuscular Hemoglobin 28.7 Mean Corpuscular Hemoglobin Concent 33.9 Red Cell Distribution Width 14.4 Platelet Count 244 Mean Platelet Volume 7.1 L Neutrophils (%) (Auto) 63.1 Lymphocytes (%) (Auto) 23.9 Monocytes (%) (Auto) 7.7 Eosinophils (%) (Auto) 4.8 Basophils (%) (Auto) 0.5 Neutrophils # (Auto) 3.0 Lymphocytes # (Auto) 1.1 Monocytes # (Auto) 0.4 Eosinophils # (Auto) 0.2 Basophils # (Auto) 0.0 CBC Comment Sodium Level 139 Potassium Level 3.2 L Chloride Level 103 Carbon Dioxide Level 26.4 Anion Gap 10 Blood Urea Nitrogen 11 Creatinine 1.05 Estimated GFR/1.73 m2 87 BUN/Creatinine Ratio 10.5 Glucose Level 95 Calcium Level 8.7 Magnesium Level 1.8 Troponin I High Sensitivity 12 Pro-B-Type Natriuretic Peptide 1128 H Albumin 3.2 L Chemistry Comments EKG/XRAY/CT/US/VASC/MRI EKG : Additional Comment EKG was obtained and interpreted by myself showing sinus rhythm of 82, normal VT interval, narrow QRS, no QT prolongation, normal axis, no STEMI, symmetric T- wave inversions in V2, V3, AVF as well as V4 V5 noted. Medical Decision Making Findings Facility Status: ED Holds, E process The plan was discussed with the patient, who demonstrates clear understanding of the plan and is in agreement with the plan unless otherwise noted in the chart. All questions have been answered, all concerns were addressed unless otherwise documented. I was available throughout their ED stay for frequent reassessment and questions. Differential Diagnoses (considered and possible or likely): [Syncope without prodrome is concerning for cardiogenic syncope especially in the setting of congestive heart failure, malignant arrhythmia, given the fact that he was thinning in the heat of the time, vasovagal event although the lack of prodrome is speaking against it, orthostasis has been considered, ACS, less likely PE. He has not no risk factors for PE.] ??Differential Diagnoses (considered and unlikely, not requiring evaluation currently): [No evidence of lateralizing signs to suspect a stroke] MDM Data Please see HPI for the following: Independent Historians and external Records Review. Historian: [Patient] Independent Historians: ?[Record review] Medication Management: [Reviewed medication list] Social History and determinants: [Reviewed] Please see the body of the note for the following: Any independent interpretations of ECG, imaging studies. All vitals signs/haemodynamics, ordered tests were independently reviewed and interpreted by myself. Nursing triage complaint and vitals reviewed, additional nursing notes were reviewed as available and I agree unless otherwise noted or documented in contradiction in the chart Vital Signs: Independently reviewed Labs: Independently interpreted Imaging: Independently interpreted Old Medical Records: Independently reviewed, see HPI for relevant summary and information Pulse Oximetry: [98%] interpreted as [normal on room air] by me [Inspector Material Disposition: [Regular Rate, Regular rhythm, no ectopy, NSR] reviewed and interpreted by me] Additionally notably showing: [Initially hypotensive, improved, received fluids. Laboratory workup was unremarkable.] Tests considered but not ordered include: [CTA has been considerably does not appear to be necessary] Social Determinants of Health Impact: Patient was evaluated in [facility], [facility] [place] access to healthcare due to below par ratio of patient to medical providers. [] Comorbid Conditions Impacting Present Evaluation and Care/Treatment: [CHF] Management Discussions with other Healthcare Providers: [Hospitalist regarding admission] Treatment and Disposition Medication Management (Given or considered): []. See EMR for details Consideration for Hospitalization/Escalation/Deescalation of Care: Admission for observation has been considered, for further workup of his syncope. ?ED Course:?[Given history of near-syncope that occurred a week ago, known CHF, abnormal EKG, I feel that the lack of prodrome today is concerning and patient will require admission.] ?Shared decision making:?[] Code status:?FULL Please see the full Electronic Medical Record for full details of nursing documentation, medications list, other records of complete past medical history and conditions, vital signs, laboratory studies, and any radiologic study interpretations by radiologists. Portions of this note were completed using [employer] dictation software and as a result there may exist minor errors in spelling. I have reviewed elements of past family and social history and agree as included in note. Departure Disposition: 09 ADMITTED INPATIENT Impression: Primary Impression: Syncope Condition: Improved Referrals: NO PRIMARY CARE PROVIDER (PCP) Education Educated: Patient Educated regarding: diagnosis, treatment, prognosis, need for follow up Additional Comment Medical Screen Exam This patient recieved a medical screening examination. After reviewing the individual's medical complaints with presenting symptoms and performing an appropriate physical examination, it was determined that no immediate life- threatening emergency medical condition is present. This individual is also not a women having contractions. Signature Scribe Signature: No scribe Attestation: This note accurately reflects clinical decisions, work performed by myself, DO NAN Muniz ASHLEY D [facility] Feb 22, 2025 15:25 ZUHAIR KOVACS DO Feb 22, 2025 16:59
--- NOTE | 2025-02-22 15:53 | ELECTROCARDIOGRAPH REPORT ---
[facility] Test Date: 2025-02-22 Test Time: 15:51:24 Pat Name: DOT GARY Department: [facility] Patient ID: [facility]-[id number] Room: [place] [address] Gender: M Patient Care Representative: : 1965 Requested By: CHANNING [place] Order Number: [id number] Reading MD: Dr. Nirmal Ricci Measurements Intervals [place] Rate: 82 P: 52 HI: 152 QRS: 45 QRSD: 96 T: 254 QT: 390 QTc: 456 Interpretive Statements Sinus rhythm Left atrial enlargement LVH with secondary repolarization abnormality Electronically Signed On 02-23-2025 9:16:[address] Nirmal Ricci Please click the below link to view image of tracing.
[2025-02-22 16:26] LABS: MEAN PLATELET VOLUME 7.1 FL (7.4-10.4); RED CELL DISTRIBUTION WIDTH 14.4 % (11.5-14.5)
[2025-02-22 16:34] LABS: CREATININE 1.05 MG/DL (0.60-1.10); TOTAL CARBON DIOXIDE 26.4 MMOL/L (24-32); eCRCL 61 ML/MIN; eGFR 87 ML/MIN
[2025-02-22] MEDS: normal saline 500ml IV soln 500 ML IV ONE (17:04)
[2025-02-22] MEDS ORDERED: potassium Cl 20 mEq SR tablet PO PRN (17:15)
[2025-02-22] MEDS ORDERED: bisacodyl 10mg suppository rectal RC PRN (17:15)
[2025-02-22] MEDS ORDERED: magnesium sulf-water 4G/100mL 100 ML IV PRN (17:15)
[2025-02-22] MEDS ORDERED: magnesium sulf-water 2g/50mL 50 ML IV PRN (17:15)
[2025-02-22] MEDS ORDERED: potassium Cl 40MEQ/1/2NS 520ml 520 ML IV PRN (17:15)
[2025-02-22] MEDS ORDERED: ondansetron/PF 4mg/2ml inj IV PRN (17:15)
[2025-02-22] MEDS ORDERED: metoprolol tartrate 1mg/ml inj IV PRN (17:15)
[2025-02-22] MEDS ORDERED: aminophylline 250mg/10ml inj. IV PRN (17:15)
[2025-02-22] MEDS ORDERED: mag hydrox/Alum hydrox/simeth 30ml oral suspension PO PRN (17:15)
[2025-02-22] MEDS: PERFLUTREN PROTEIN-A MICROSPHR (Optison) 0.22 MG/ML 3ML VIAL IV ONE (17:48)
[2025-02-22] MEDS: normal saline 1000ml 1,000 ML IV SCH (17:53)
[2025-02-22 18:00] LABS: PRO BRAIN NATRIURETIC PEPTIDE 1128 PG/ML (0-125)
[2025-02-22] MEDS: nicotine 14mg patch - 24hr TD ONE (18:15)
--- NOTE | 2025-02-22 18:17 | HISTORY AND PHYSICAL ---
History & Physical Providers to CC ~ History of Present Illness Reason for Admit\Complaint: Tra syncope, EKG Changes- T-wave inversion in multiple leads History of Present Illness This is a 59-year-old male who was hanging out with his friends when he had a became lightheaded when he arose from a seat to standing position and felt quite dizzy. The patient had another episode this morning where he actually stood up in his friends has a catch him as he had passed out. The patient initially was hypotensive with a blood pressure of 88/51 repeat blood pressure in the afternoon was slightly improved to 97/61 and now is 147/80. The patient had T- wave inversion in EKG in leads II, III, AVF, V5, V6. The patient did have drink three 24 oz cans and did smoke methamphetamines today. 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 Allergies: Coded Allergies: Penicillins (Verified Allergy, Unknown, 02/22/25) Home Medications Home Medications Active Ramelteon 8 Mg Tablet 1 Tab PO HS 30 Days Zoloft* (Sertraline HCl) 25 Mg Tablet 2 Tab PO DAILY 30 Days Metoprolol Succinate 25 Mg Tab.sr.24h 1 Tab PO DAILY 30 Days Lipitor* (Atorvastatin Calcium) 20 Mg Tablet 1 Tablet PO HS 30 Days Lasix (Furosemide) 20 Mg Tablet 20 Mg PO DAILY Reported Aspirin EC (Aspirin) 81 Mg Tablet.dr 1 Tab PO DAILY Past Medical History Past Medical History Bipolar disorder, HFrEF, chest pain Past Surgical History Surgical History Comment Coronary angiogram Family History Family History: FH: dementia FATHER FH: heart disease FATHER MOTHER Past Social History Social History Comment Smokes less than half a pack of cigarettes a day, drinks 3-4 times a week ( 3- 24 oz cans of Smerinoff ICE), smokes methamphetamines two to 3 times a month. Full code status ROS ROS Except for positives in the HPI the rest of the 14 point review systems is negative Exam Vitals: Vital Signs Date Time Temp Pulse Resp B/P (MAP) Pulse Ox O2 Delivery O2 Flow Rate FiO2 02/22/25 18:03 97.6 85 18 147/80 (102) 98 General: Gen. No acute distress alert and oriented 4 Lungs clear to ascultation bilaterally, no wheezes rales or rhonchi appreciated Heart normal sinus rhythm no murmurs rubs or clicks noted Abdomen soft nontender bowel sounds are normoactive Lower extremities no clubbing cyanosis, nor edema appreciated bilaterally Diagnostic Data Last Recorded Lab Results: 02/22/25 1538 02/22/25 1538 Counseling Services Smoking & Tobacco Cessation: > 10 Minutes Advance Care Planning Advanced Care plannin - 30 Minutes Problems: (1) Syncope Status: Acute Additional Plan # tra syncope with complaints consistent of orthostatic hypotension- Orthostatic vital signs are ordered Echocardiogram Physical therapy And a alarm security or surveillance monitor # ischemic changes on EKG with T-wave inversion on leads II, III, AVF, V5, V6 Lexiscan stress test is ordered # HFrEF with a prior LVEF of 45% on echocardiogram No signs of the fluid overload in fact the patient is dehydrated on presentation Echocardiogram is ordered awaiting med reconciliation # Tobacco abuse-I spent 12 minutes discussing smoking cessation with the patient including the risk of continuing smoke: Lung cancer, stroke, heart attack. The expense of smoking cigarettes and how cigarettes have been scientifically engineered to be as addictive as humanly possible. As well as the cigarettes are the #1 Cause erectile dysfunction then The patient has accepted a 14 mg nicotine patch. # hypokalemia On potassium replacement protocol # alcohol use- Monitor for any signs of alcohol withdrawal patient denies ever having any issues with alcohol withdrawal # methamphetamine use disorder Substance use navigator Tasia Watson consult is ordered # DVT prophylaxis SCDs SQ Lovenox I spent a total of 17 minutes on reviewing various resuscitative measures/ ACP with the patient at the time of admission. The patient has decided on full code status Date of Service: Feb 22, 2025 Billing Provider: ADOLFO BEAVER DO Common Visit Codes: [id number] INP/OBS CARE (HIGH) Secondary Visit Codes: [id number] CHNG SMOKING >10MIN, [id number] CARE PLAN 30 MINUTES ADOLFO BEAVER DO Feb 22, 2025 18:17
[2025-02-22] MEDS ORDERED: LISI20TA28 PO (18:52)
[2025-02-22] MEDS ORDERED: CARV-50 PO (18:55)
[2025-02-22] MEDS ORDERED: PANT40TA54 PO (18:55)
[2025-02-22] MEDS ORDERED: SERT-433 (18:55)
[2025-02-22] MEDS ORDERED: HYDR-3686 PO (18:55)
[2025-02-22] MEDS ORDERED: TRAZ-251 (18:55)
[2025-02-22 18:58] LABS: URINE AMPHETAMINE SCREEN POSITIVE (Neg); URINE BARBITUATE SCREEN NEGATIVE (Neg); URINE BENZODIAZEPINES SCREEN NEGATIVE (Neg); URINE CANNABINOID SCREEN POSITIVE (Neg); URINE COCAINE SCREEN NEGATIVE (Neg); URINE METHADONE SCREEN NEGATIVE (Neg); URINE OPIATE SCREEN NEGATIVE (Neg); URINE PHENCYCLIDINE SCREEN NEGATIVE (Neg)
[2025-02-22] MEDS: K and/or MAG REPLACEMENT MC SCH (20:04)
[2025-02-22] MEDS: enoxaparin 40mg/0.4ml syringe SQ SCH (20:06)
[2025-02-22] MEDS: docusate sod 100mg capsule PO SCH (20:06)
[2025-02-22] MEDS: potassium Cl 20 mEq SR tablet PO PRN (21:23)
[2025-02-22 22:37] VITALS: BP 155/90; PULSE 71; RESP 18; TEMP 97.9; O2SAT 100
[2025-02-22 23:41] VITALS: BP_SYST 148; BP_SYST 160; BP_SYST 166; BP_DIAS 87; BP_DIAS 88; BP_DIAS 91; PULSE 70; PULSE 78; PULSE 84
[2025-02-23] VITALS (19 sets, daily range): BP systolic 138–179; BP diastolic 78–122; PULSE 60–104; RESP 14–19; TEMP 97.6–98.8; O2SAT 97–100
[2025-02-23 06:16] LABS: MEAN PLATELET VOLUME 7.3 FL (7.4-10.4); RED CELL DISTRIBUTION WIDTH 14.6 % (11.5-14.5)
[2025-02-23 06:32] LABS: CREATININE 0.82 MG/DL (0.60-1.10); TOTAL CARBON DIOXIDE 26.2 MMOL/L (24-32); eCRCL 79 ML/MIN; eGFR > 90 ML/MIN
[2025-02-23] MEDS: regadenoson 0.4mg/5ml syringe IV PRN (09:39)
--- NOTE | 2025-02-23 12:29 | RADIOLOGY REPORT ---
CLINICAL INFORMATION: Abnormal EKG, multilead T wave inversion on EKG. TECHNIQUE: 8.2 mCi of technetium 99m sestamibi was infused at rest. Rest SPECT imaging was obtained. Routine protocol for Lexiscan stress study was performed with 0.4 mg of Lexiscan. 32.4 mCi of technet ium 99m sestamibi was infused. Stress SPECT imaging was obtained. COMPARISON: NM NM DWAIN SCAN on DOS: 05/04/23 FINDINGS: Resting heart rate of 60 BPM increased to maximum rate of 100 BPM. Resting blood pressure o f 173/103. Blood pressure was 177/107 with stress. There were no significant ST-T wave EKG changes. T here was no chest pain. There is no evidence of stress induced ischemia or stress dilatation of the left ventricle. TID ratio is 1.09. Wall motion imaging appears diffusely hypokinetic Calculated left ventricular ejection fraction is 34%. IMPRESSION: 1. No evidence of stress-induced ischemia. 2. Left ventricular ejection fraction is 34%.
[2025-02-23] MEDS ORDERED: METO25TA6 PO (15:46)
--- NOTE | 2025-02-23 17:29 | CARDIOLOGY REPORT ---
APPROVED REPORT EXAM: Comprehensive 2D, Doppler, and color-flow Echocardiogram. Patient Location: [address] Heart Rate: 60's bpm Rhythm: SINUS Indications SYNCOPE CONGESTIVE HEART FAILURE ELEVATED PBNP (1128) Title Examiner: MD SHARONDA Previous echo: 08-13-24 [facility] EF 45%, Jen, modMR, mTR 2D Dimensions RVDd 3.0 cm IVSd 1.3 (0.7-1.1cm) LVDd 5.5 cm PWd 1.2 (0.7-1.1cm) IVSs 1.4 (0.8-1.2cm) LVDs 4.5 (2.5-4.0cm) PWs 1.4 (0.8-1.2cm) LVOT Diameter 2.05 (1.8-2.4cm) LVEF(%) 37.0 (>50%) IVC 11.93 mm FS (%) 18.0 % SV 54.4 ml CO 6.9 L/min M-Mode Dimensions Left Atrium(MM) 3.78 (2.5-4.0cm) Aortic Root 4.06 (2.2-3.7cm) Aortic Cusp Exc 2.16 (1.5-2.0cm) MV EPSS 0.9 (<0.5cm) Aortic Valve AoV Peak Alex. 126.5 cm/s AoV VTI 23.8 cm AO Peak GR. 6.4 mmHg AO Mean GR. 3 mmHg LVOT VTI 17.41 cm LVOT Peak Alex. 89.5 cm/s SAVANNA(VTI)/BSA 2.41 cm2/m2 SAVANNA (VTI) 2.41 cm2 Mitral Valve MV E Velocity 67.7 cm/s MV Peak Gr. 5 mmHg MV DECEL TIME 212 ms MV A Velocity 73.8 cm/s MV PHT 52 ms E/A Ratio 0.9 MVA (PHT) 4.23 cm2 MV EJvx007.4 cm/s TDI Lateral E' P. V33.03 cm/s E/Lateral E' 2.0 Tricuspid Valve TR P. Velocity 276 cm/s RAP ESTIMATE 10 mmHg TR Peak Gr. 30 mmHg RVSP 40 mmHg Pulmonary Vein S1 Velocity 37.8 cm/s D2 Velocity 44.8 cm/s PVa Fehyspxj12.2 cm/s PVa [id number] msec LEFT VENTRICLE Normal LV size with moderately reduced function. Mild concentric hypertrophy. LVEF is 40%. RIGHT VENTRICLE RV is normal size and function. Elevated right heart pressures as noted above. ATRIA The left atrium size is normal. Mobile IAS bowed to the right. AORTIC VALVE Trileaflet AV appears mildly sclerotic without stenosis. Mild insufficiency. MITRAL VALVE Mild MV annular calcification without stenosis. Moderate regurgitation. TRICUSPID VALVE TV appears structurally normal with mild regurgitation. PULMONIC VALVE Normal PV without stenosis, no insufficiency. GREAT VESSELS Aortic root is mildly dilated. IVC is normal in size and collapses greater than 50% with inspiratio n. PERICARDIUM Normal pericardium. No effusion. Other Information Study Quality: Adequate
--- NOTE | 2025-02-23 22:24 | PROGRESS NOTE ---
Daily Progress Note Providers to CC ~ Antibiotic Timeout Antibiotic Ordered?: No Subjective The patient continues to experience dizziness when getting up from a seat it did have a 18 point drop in his systolic blood pressure I did ordered Fran hose for the patient he may require Florinef the patient has a negative Lexiscan stress test in his echocardiogram demonstrated an LVEF of 40% which is unchanged from previous echo Objective Vital Signs Date Time Temp Pulse Resp B/P (MAP) Pulse Ox O2 Delivery O2 Flow Rate FiO2 02/23/25 18:30 69 02/23/25 15:42 97 Room Air* 0 21 02/23/25 15:00 98.3 15 147/83 (104) Result Diagram: 02/23/2552402/23/25524 Gen. No acute distress alert and oriented 4 Lungs clear to ascultation bilaterally, no wheezes rales or rhonchi appreciated Heart normal sinus rhythm no murmurs rubs or clicks noted Abdomen soft nontender bowel sounds are normoactive Lower extremities no clubbing cyanosis, nor edema appreciated bilaterally Problem\Assessment\Plan Problems/Diagnosis: (1) Syncope # tra syncope with complaints consistent of orthostatic hypotension- Orthostatic vital signs demonstrate a 18 point drop in systolic blood pressure from seated to standing- Fran hose are ordered Echocardiogram unchanged EF Physical therapy And a monitoring specialist # ischemic changes on EKG with T-wave inversion on leads II, III, AVF, V5, V6 Lexiscan stress test is negative # HFrEF with a prior LVEF of 45% on echocardiogram No signs of the fluid overload in fact the patient is dehydrated on presentation Echocardiogram demonstrates an LVEF of 40% Continue lisinopril and carvedilol # Tobacco abuse-I spent 12 minutes discussing smoking cessation with the patient including the risk of continuing smoke: Lung cancer, stroke, heart attack. The expense of smoking cigarettes and how cigarettes have been scientifically engineered to be as addictive as humanly possible. As well as the cigarettes are the #1 Cause erectile dysfunction then The patient has accepted a 14 mg nicotine patch. # hypokalemia On potassium replacement protocol # alcohol use- Monitor for any signs of alcohol withdrawal patient denies ever having any issues with alcohol withdrawal # methamphetamine use disorder Substance use navigator Tasia Watson consulted today 02/23 # DVT prophylaxis SCDs SQ Lovenox Date of Service: Feb 23, 2025 Billing Provider: ADOLFO BEAVER DO Common Visit Codes: [id number] INP/OBS CARE(HIGH) ADOLFO BEAVER DO Feb 23, 2025 22:24
[2025-02-24] VITALS (8 sets, daily range): BP systolic 109–157; BP diastolic 73–90; PULSE 64–90; RESP 12–18; TEMP 97.1–98.2; O2SAT 84–100
[2025-02-24 06:34] LABS: MEAN PLATELET VOLUME 7.2 FL (7.4-10.4); RED CELL DISTRIBUTION WIDTH 14.3 % (11.5-14.5)
[2025-02-24 07:04] LABS: CREATININE 0.82 MG/DL (0.60-1.10); TOTAL CARBON DIOXIDE 26.2 MMOL/L (24-32); eCRCL 79 ML/MIN; eGFR > 90 ML/MIN
[2025-02-24] MEDS: aspirin 81mg, enteric-coated 1 TAB TABLET.DR PO SCH (10:16)
[2025-02-24] MEDS: pantoprazole 40mg Tablet.DR PO SCH (10:18)
--- NOTE | 2025-02-24 19:36 | PROGRESS NOTE ---
Daily Progress Note Providers to CC ~ chief complaint, headaches Central Line/PICC still needed: No Egan-Non Protocol Egan Indications Met/Not Met: F/C Indications Not Met Antibiotic Timeout Antibiotic Ordered?: No MRSA Education MRSA Education Provided to pt: No Subjective As above Objective Vital Signs Date Time Temp Pulse Resp B/P (MAP) Pulse Ox O2 Delivery O2 Flow Rate FiO2 02/24/25 11:00 97.5 89 16 145/85 (105) 100 Room Air 02/24/25 08:00 0.0 02/23/25 20:00 21 Vital signs, stable ,afebrile. Pulse Oximetry reflects adequate oxygenation. BMI is 19, weight 58 kg General: well developed, well nourished. Awake , alert, and oriented x4, resting comfortably in the bed, in no acute distress . Skin: Warm, dry, no pallor, no rash or petechiae. HEENT: Atraumatic, normocephalic, EOMI, anicteric sclera B; pink conjunctiva; PERRLA, normal oropharynx, moist oral and nasal mucosa. Tympanic membrane , nose , throat clear. Neck: Trachea midline. Supple, full range of motion, no JVD, bruit , hepatojugular reflex , lymphadenopathy or masses, or other lesions Cardiac: Regular rhythm, regular rate no murmurs, rubs, or gallops. Normal S1 and S2, no S3 noticed. PMI is normal. Respiratory: Equal breath sounds bilaterally, no tachypnea; lungs clear to auscultation bilaterally, no wheezing ,rub or rales, or crackles. Chest wall is symmetric and without deformity. No signs of trauma. Chest wall is nontender. No signs of respiratory distress. Resonance is normal upon percussion bilaterally. Gastrointestinal: Abdomen symmetric, non-distended, soft, non-tender, normal bowel sounds x4 quadrant, normoactive, no hepatosplenomegaly , no masses , no bruit, no flank pain bilaterally. No voluntary guarding, rebound, or rigidity. No tenderness to percussion. No pulsatile masses. Equal femoral pulses. No Maharaj's sign or McBurney point tenderness. Back; no CVA tenderness bilaterally, no deformities. Neck and back are without deformity as well. No tenderness noted on palpation of the spinous processes. Spinous processes are midline. Cervical, thoracic, and lumbar paraspinal muscles are not tender and are without spasm. : normal external genitalia, without lesions, swelling, masses or tenderness. Musculoskeletal: Extremities, normal range of motion, non-tender, muscle strength 5/5 x 4. Negative Homans signs bilaterally on lower extremity. Distal pulses full symmetrical, no clubbing, cyanosis , edema. Neurological: Speech is clear, alert, and oriented x 4. No motor or sensory deficit, deep tendon reflexes normal, cerebellar intact. Cranial nerves II-XII intact. Psych: Alert and or appropriate, normal affect. Vascular: Good distal pulses, which are equal x4; capillary refill less than 2 seconds. Lymphatic, no lymphadenopathy. Result Diagram: 02/24/2555702/24/25557 Problem\Assessment\Plan Problems/Diagnosis: (1) Syncope Assessment/plan # tra syncope with complaints consistent of orthostatic hypotension- Orthostatic vital signs demonstrate a 18 point drop in systolic blood pressure from seated to standing- Fran hose are ordered Echocardiogram unchanged EF Physical therapy And a business development professional # ischemic changes on EKG with T-wave inversion on leads II, III, AVF, V5, V6 Lexiscan stress test is negative # HFrEF with a prior LVEF of 45% on echocardiogram No signs of the fluid overload in fact the patient is dehydrated on presentation Echocardiogram demonstrates an LVEF of 40% Continue lisinopril and carvedilol # Tobacco abuse-I spent 12 minutes discussing smoking cessation with the patient including the risk of continuing smoke: Lung cancer, stroke, heart attack. The expense of smoking cigarettes and how cigarettes have been scientifically engineered to be as addictive as humanly possible. As well as the cigarettes are the #1 Cause erectile dysfunction then The patient has accepted a 14 mg nicotine patch. # hypokalemia On potassium replacement protocol # alcohol use- Monitor for any signs of alcohol withdrawal patient denies ever having any issues with alcohol withdrawal # methamphetamine use disorder Amphetamine intoxication Headaches common CT of the head pending IV Tylenol, clonidine p.o. Substance use navigator Tasia Watson consulted today 02/23 # DVT prophylaxis SCDs SQ Lovenox Sepsis Screening Reassessment Date: Feb 24, 2025 Date of Service: Feb 24, 2025 Billing Provider: ONUR SANABRIA MD Common Visit Codes: [id number] INP/OBS CARE(HIGH) ONUR SANABRIA MD Feb 24, 2025 19:36
[2025-02-24] MEDS ORDERED: acetaminophen 1,000mg/100ml IV 100 ML IV PRN (20:00)
--- NOTE | 2025-02-24 20:26 | RADIOLOGY REPORT ---
EXAM: CT CT HEAD INDICATION: Headaches, elevated blood pressure TECHNIQUE: CT of the head without intravenous contrast. Radiation Dose : 1. Head: CT Dose: CTDI volume is 61 mGy. Dose-length product is 1063 mGy*cm The dose indicators for CT are the volume Computed Tomography (CT) Dose Index (CTDIvol) and the Dose Length Product (DLP), and are measured in units of mGy and mGy-cm, respectively. These indicators are not patient dose, but values generated from the CT scanner acquisition factors. The report includes radiation exposure data for exposures received during this examination. COMPARISON: None FINDINGS: There is no evidence of acute intracranial hemorrhage, extra-axial collection, mass effect, midline s hift, herniation or hydrocephalus. The ventricles, sulci and cisterns are age appropriate. The treviño-white differentiation is intact. Patchy periventricular and subcortical white matter hypoattenuation is nonspecific but may be related to small vessel ischemic disease. The visualized paranasal sinuses and mastoid air cells are clear. The surrounding soft tissues and osseous structures are unremarkable. IMPRESSION: 1. No acute intracranial abnormality. 2. Chronic microvascular ischemic changes. Radiation optimization: All CT scans at this facility use at least one of these dose optimization vicky hniques: automated exposure control mA and/or kV adjustment per patient size (includes targeted exam s where dose is matched to clinical indication) or iterative reconstruction.
[2025-02-25] VITALS (11 sets, daily range): BP systolic 98–139; BP diastolic 56–78; PULSE 59–99; RESP 14–22; TEMP 97.2–97.6; O2SAT 99–100
[2025-02-25 06:22] LABS: MEAN PLATELET VOLUME 7.0 FL (7.4-10.4); RED CELL DISTRIBUTION WIDTH 14.7 % (11.5-14.5)
[2025-02-25 06:38] LABS: CREATININE 0.86 MG/DL (0.60-1.10); TOTAL CARBON DIOXIDE 29.3 MMOL/L (24-32); eCRCL 75 ML/MIN; eGFR > 90 ML/MIN
[2025-02-25] MEDS: nicotine 14mg patch - 24hr TD SCH (11:41)
[2025-02-25] MEDS: ketorolac trometh 15mg/ml vial 15 MG/ML ML IV ONE (16:48)
--- NOTE | 2025-02-25 18:25 | PROGRESS NOTE ---
Daily Progress Note Providers to CC Chief complaint, headaches, improving ~ Central Line/PICC still needed: No Egan-Non Protocol Egan Indications Met/Not Met: F/C Indications Not Met Antibiotic Timeout Antibiotic Ordered?: No MRSA Education MRSA Education Provided to pt: No Subjective As above Objective Vital Signs Date Time Temp Pulse Resp B/P (MAP) Pulse Ox O2 Delivery O2 Flow Rate FiO2 02/25/25 17:48 14 02/25/25 14:00 97.2 72 110/56 (74) 100 Room Air 0.0 21 Vital signs, stable ,afebrile. Pulse Oximetry reflects adequate oxygenation. General: well developed, well nourished. Awake , alert, and oriented x4, resting comfortably in the bed, in no acute distress . Skin: Warm, dry, no pallor, no rash or petechiae. HEENT: Atraumatic, normocephalic, EOMI, anicteric sclera B; pink conjunctiva; PERRLA, normal oropharynx, moist oral and nasal mucosa. Tympanic membrane , nose , throat clear. Neck: Trachea midline. Supple, full range of motion, no JVD, bruit , hepatojugular reflex , lymphadenopathy or masses, or other lesions Cardiac: Regular rhythm, regular rate no murmurs, rubs, or gallops. Normal S1 and S2, no S3 noticed. PMI is normal. Respiratory: Equal breath sounds bilaterally, no tachypnea; lungs clear to auscultation bilaterally, no wheezing ,rub or rales, or crackles. Chest wall is symmetric and without deformity. No signs of trauma. Chest wall is nontender. No signs of respiratory distress. Resonance is normal upon percussion bilaterally. Gastrointestinal: Abdomen symmetric, non-distended, soft, non-tender, normal bowel sounds x4 quadrant, normoactive, no hepatosplenomegaly , no masses , no bruit, no flank pain bilaterally. No voluntary guarding, rebound, or rigidity. No tenderness to percussion. No pulsatile masses. Equal femoral pulses. No Maharaj's sign or McBurney point tenderness. Back; no CVA tenderness bilaterally, no deformities. Neck and back are without deformity as well. No tenderness noted on palpation of the spinous processes. Spinous processes are midline. Cervical, thoracic, and lumbar paraspinal muscles are not tender and are without spasm. : normal external genitalia, without lesions, swelling, masses or tenderness. Musculoskeletal: Extremities, normal range of motion, non-tender, muscle strength 5/5 x 4. Negative Homans signs bilaterally on lower extremity. Distal pulses full symmetrical, no clubbing, cyanosis , edema. Neurological: Speech is clear, alert, and oriented x 4. No motor or sensory deficit, deep tendon reflexes normal, cerebellar intact. Cranial nerves II-XII intact. Psych: Alert and or appropriate, normal affect. Vascular: Good distal pulses, which are equal x4; capillary refill less than 2 seconds. Lymphatic, no lymphadenopathy. Result Diagram: 02/25/2560002/25/25600 Problem\Assessment\Plan Problems/Diagnosis: (1) Syncope Assessment/plan # tra syncope with complaints consistent of orthostatic hypotension- Orthostatic vital signs demonstrate a 18 point drop in systolic blood pressure from seated to standing- Fran hose are ordered Echocardiogram unchanged EF Physical therapy And a traffic monitor specialist # ischemic changes on EKG with T-wave inversion on leads II, III, AVF, V5, V6 Lexiscan stress test is negative # HFrEF with a prior LVEF of 45% on echocardiogram No signs of the fluid overload in fact the patient is dehydrated on presentation Echocardiogram demonstrates an LVEF of 40% Continue lisinopril and carvedilol # Tobacco abuse-I spent 12 minutes discussing smoking cessation with the patient including the risk of continuing smoke: Lung cancer, stroke, heart attack. The expense of smoking cigarettes and how cigarettes have been scientifically engineered to be as addictive as humanly possible. As well as the cigarettes are the #1 Cause erectile dysfunction then The patient has accepted a 14 mg nicotine patch. # hypokalemia On potassium replacement protocol # alcohol use- Monitor for any signs of alcohol withdrawal patient denies ever having any issues with alcohol withdrawal # methamphetamine use disorder Amphetamine intoxication Headaches common CT of the head completed, MRI of the head pending IV Tylenol, clonidine p.o. Substance use navigator Tasia Watson consulted today 02/23 # DVT prophylaxis SCDs SQ Lovenox Sepsis Screening Reassessment Date: Feb 25, 2025 Date of Service: Feb 25, 2025 Billing Provider: ONUR SANABRIA MD Common Visit Codes: [id number] INP/OBS CARE(HIGH) ONUR SANABRIA MD Feb 25, 2025 18:25
[2025-02-25] MEDS: ketorolac trometh 15mg/ml vial 15 MG/ML ML IV PRN (21:45)
[2025-02-26 02:00] VITALS: BP 104/63; PULSE 76; RESP 14; TEMP 97; O2SAT 100
[2025-02-26 06:00] VITALS: BP 125/73; PULSE 63; RESP 14; TEMP 97.7; O2SAT 100
[2025-02-26 06:13] LABS: MEAN PLATELET VOLUME 7.2 FL (7.4-10.4); RED CELL DISTRIBUTION WIDTH 14.3 % (11.5-14.5)
[2025-02-26 06:25] LABS: CREATININE 1.16 MG/DL (0.60-1.10); TOTAL CARBON DIOXIDE 30.9 MMOL/L (24-32); eCRCL 56 ML/MIN; eGFR 78 ML/MIN
[2025-02-26 08:32] VITALS: RESP 14; O2SAT 100
[2025-02-26 11:02] VITALS: BP 113/67; PULSE 77; RESP 11; TEMP 97.3; O2SAT 100
--- NOTE | 2025-02-26 13:17 | RADIOLOGY REPORT ---
EXAM: MR MRI HEAD HISTORY: Persistent CASILLAS COMPARISON: CT CT HEAD on DOS: 02/24/25 TECHNIQUE: Multiplanar multisequence noncontrast MR images of the brain were performed. FINDINGS: No intracranial mass, midline shift, or hydrocephalus. There is moderate high T2-FLAIR sign al abnormality in the periventricular white matter, greatest in the left occipital parietal region. N o evidence of acute infarct on the diffusion-weighted images. T2 gradient echo images are negative fo r abnormal accumulation of intracranial blood products. Flow voids are present in the major intracran ial vessels. The corpus callosum, sella, pituitary, and craniocervical junction are unremarkable. The re is mildly divergent optic gaze, and the optic globes are otherwise symmetric. The paranasal sinuse s are clear. The bilateral mastoid air cells are clear. IMPRESSION: Chronic ischemic changes without evidence of evidence of acute infarct or other acute intracranial pr ocess.
[2025-02-26] MEDS ORDERED: DICL50TA8 PO (13:50)
[2025-02-26] MEDS ORDERED: SPIR25TA PO (13:50)
[2025-02-26] MEDS ORDERED: HYDR-3965 PO (13:50)
[2025-02-26] MEDS ORDERED: DAPA10TA PO (13:50)
[2025-02-26 14:19] VITALS: RESP 16
--- NOTE | 2025-02-26 17:51 | DISCHARGE SUMMARY ---
Discharge Summary Providers to No new complaint today asking to be discharged home ~ Discharge Summary Assessment Syncope CHF reduced ejection fraction 40% in exacerbation Chronic tobacco abuse including Currently hypokalemia Chronic alcohol abuse including currently chronic amphetamine abuse including currently Alcohol withdrawal syndrome Opioids withdrawal syndrome Headaches common, secondary to all of the above Admission Diagnosis: syncope, ac ischemic changes on EKG Admission Diagnosis Comment: Syncope CHF reduced ejection fraction 40% in exacerbation Chronic tobacco abuse including Currently hypokalemia Chronic alcohol abuse including currently chronic amphetamine abuse including currently Alcohol withdrawal syndrome Opioids withdrawal syndrome Headaches common, secondary to all of the above Hospital Course DATE OF ADMISSION: February 22 2025 DATE OF DISCHARGE: February 26, 2025 Discharge Diagnosis\Comment: Syncope CHF reduced ejection fraction 40% in exacerbation Chronic tobacco abuse including Currently hypokalemia Chronic alcohol abuse including currently chronic amphetamine abuse including currently Alcohol withdrawal syndrome Opioids withdrawal syndrome Headaches common, secondary to all of the above Operations\Procedures: Non Consultants: Non Complications: Non Condition on DC: Stable Discharge Summary: This is a 59-year-old male who was hanging out with his friends when he had a became lightheaded when he arose from a seat to standing position and felt quite dizzy. The patient had another episode this morning where he actually stood up in his friends has a catch him as he had passed out. The patient initially was hypotensive with a blood pressure of 88/51 repeat blood pressure in the afternoon was slightly improved to 97/61 and now is 147/80. The patient had T- wave inversion in EKG in leads II, III, AVF, V5, V6. The patient did have drink three 24 oz cans and did smoke methamphetamines today. 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 To admission patient was extensively evaluated treated medication adjusted today he is feeling better asking to be discharged home, he will be discharged in stable condition, follow-up with Cardiology PCP in two days, medication reconciled, return to emergency department if condition worsens, today on physical exam, Vital signs, stable ,afebrile. Pulse Oximetry reflects adequate oxygenation. General: well developed, well nourished. Awake , alert, and oriented x4, resting comfortably in the bed, in no acute distress . Skin: Warm, dry, no pallor, no rash or petechiae. HEENT: Atraumatic, normocephalic, EOMI, anicteric sclera B; pink conjunctiva; PERRLA, normal oropharynx, moist oral and nasal mucosa. Tympanic membrane , nose , throat clear. Neck: Trachea midline. Supple, full range of motion, no JVD, bruit , hepatojugular reflex , lymphadenopathy or masses, or other lesions Cardiac: Regular rhythm, regular rate no murmurs, rubs, or gallops. Normal S1 and S2, no S3 noticed. PMI is normal. Respiratory: Equal breath sounds bilaterally, no tachypnea; lungs clear to auscultation bilaterally, no wheezing ,rub or rales, or crackles. Chest wall is symmetric and without deformity. No signs of trauma. Chest wall is nontender. No signs of respiratory distress. Resonance is normal upon percussion bilaterally. Gastrointestinal: Abdomen symmetric, non-distended, soft, non-tender, normal bowel sounds x4 quadrant, normoactive, no hepatosplenomegaly , no masses , no bruit, no flank pain bilaterally. No voluntary guarding, rebound, or rigidity. No tenderness to percussion. No pulsatile masses. Equal femoral pulses. No Maharaj's sign or McBurney point tenderness. Back; no CVA tenderness bilaterally, no deformities. Neck and back are without deformity as well. No tenderness noted on palpation of the spinous processes. Spinous processes are midline. Cervical, thoracic, and lumbar paraspinal muscles are not tender and are without spasm. : normal external genitalia, without lesions, swelling, masses or tenderness. Musculoskeletal: Extremities, normal range of motion, non-tender, muscle strength 5/5 x 4. Negative Homans signs bilaterally on lower extremity. Distal pulses full symmetrical, no clubbing, cyanosis , edema. Neurological: Speech is clear, alert, and oriented x 4. No motor or sensory deficit, deep tendon reflexes normal, cerebellar intact. Cranial nerves II-XII intact. Psych: Alert and or appropriate, normal affect. Vascular: Good distal pulses, which are equal x4; capillary refill less than 2 seconds. Lymphatic, no lymphadenopathy. *Problems/Diagnosis: (1) Syncope Status: Acute Total Time Spent on D/C: > 30 Minutes Date of Service: Feb 26, 2025 Billing Provider: ONUR SANABRIA MD Common Visit Codes: 02745-SFH/OBS DISCH DAY >30min ONUR SANABRIA MD Feb 26, 2025 17:51
== END 2025-02-26 15:37 | disposition home or self-care (01) | DRG 204 ==
LOC: ER 15:03 → ED HOLD 17:28 → EDBEDREQ 20:27 → PCU 3S 21:31
PROVIDERS: ADMIT Nurse Practitioner Family; ATTEND Nurse Practitioner Family
PROC: 4A02XM4 Measurement of Cardiac Total Activity, External Approach (ICD-10-PCS; principal; 2025-02-23)
PROC: 3E033HZ Introduction of Radioactive Substance into Peripheral Vein, Percutaneous Approach (ICD-10-PCS; 2025-02-23)
DX: I95.1 Orthostatic hypotension (principal); I50.23 Acute on chronic systolic (congestive) heart failure; E86.0 Dehydration; E87.6 Hypokalemia; N52.9 Male erectile dysfunction, unspecified; F10.239 Alcohol dependence with withdrawal, unspecified; F15.129 Other stimulant abuse with intoxication, unspecified; F17.210 Nicotine dependence, cigarettes, uncomplicated; F31.9 Bipolar disorder, unspecified; Z88.0 Allergy status to penicillin; Z79.82 Long term (current) use of aspirin; Z79.899 Other long term (current) drug therapy; Z82.49 Family history of ischemic heart disease and other diseases of the circulatory system
CPT/HCPCS: 36415; 70450; 70551; 78452; 80048; 80053; 80305; 83735; 83880; 84484; 85025; 87081; 93005; 93017; 93306; 96361; 96374; 97116; 97161; 97530; 99285; A9500; G0378; J1650; J1885; J2270; J2785; J7030; J7040; Q0177

== ENCOUNTER 2025-03-11 13:16 | Emergency (ER) | payer MEDICAID ==
[~2025-03-11] VITALS: Ht 172.7 cm; Wt 59.0 kg
[~2025-03-11 13:16] MED LIST changes: +CARV-50 PO; +DAPA10TA PO; +DICL50TA8 PO; -FURO-150 PO; +HYDR-3686 PO; +HYDR-3965 PO; +LISI20TA28 PO; -METO-395 PO; +METO25TA6 PO; +PANT40TA54 PO; -RAME8TAB24 PO; +SERT-433; -SERT25TA PO; +SPIR25TA PO; +TRAZ-251
[2025-03-11 13:17] VITALS: TEMP 98.2
--- NOTE | 2025-03-11 13:46 | ELECTROCARDIOGRAPH REPORT ---
[facility] Test Date: 2025-03-11 Test Time: 13:19:36 Pat Name: 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
[2025-03-11 13:56] LABS: MEAN PLATELET VOLUME 6.8 FL (7.4-10.4); RED CELL DISTRIBUTION WIDTH 14.3 % (11.5-14.5)
[2025-03-11 14:29] LABS: CREATININE 1.11 MG/DL (0.60-1.10); PRO BRAIN NATRIURETIC PEPTIDE 645 PG/ML (0-125); TOTAL CARBON DIOXIDE 28.7 MMOL/L (24-32); eCRCL 59 ML/MIN; eGFR 82 ML/MIN
--- NOTE | 2025-03-11 14:46 | RADIOLOGY REPORT ---
DI CHEST,SINGLE VIEW, HISTORY: CP COMPARISON: DI CHEST,SINGLE VIEW on DOS: 02/15/25, DI CHEST,SINGLE VIEW on DOS: 10/09/24, DI CHEST,SING LE VIEW on DOS: 08/12/24 DI CHEST,SINGLE VIEW on DOS: 02/15/25, DI CHEST,SINGLE VIEW on DOS: 10/09/24, DI CHEST,SINGLE VIEW on D OS: 08/12/24 TECHNICAL DATA: 1 view of the chest was obtained. FINDINGS: Lines and tubes: None Cardiomediastinal silhouette: normal Pulmonary vasculature: normal Lung expansion: normal Lung airspace: normal Lung interstitium: normal Pleura: normal Pneumothorax: no Bones: Unremarkable Other: no IMPRESSION: No acute intrathoracic abnormality.
[2025-03-11] MEDS ORDERED: normal saline 1000ml 1,000 ML IV ONE (14:55)
[2025-03-11] MEDS ORDERED: normal saline 500ml IV soln 500 ML IV SCH (15:00)
[2025-03-11] MEDS: ketorolac trometh 30MG/ML vial 30 MG/ML VIAL IV ONE (15:11)
[2025-03-11] MEDS: metoclopramide 5 mg/ml inj IV ONE (15:11)
[2025-03-11] MEDS: normal saline 500ml IV soln 500 ML IV ONE (15:12)
--- NOTE | 2025-03-11 17:03 | Physician Documentation ---
History of Present Illness ~ Chief Complaint: Dizziness Stated Complaint: DIZZINESS Time Seen by MD: 13:18 [facility] Mode of Arrival: EMS HPI 59 year old male reports dizziness, weakness, generalized malaise for several days. Denies fevers, N/V/D. No cough, +chest pain to L side of chest. He also reports a headache and that he frequently experiences headaches. Medication Reconciliation Allergies: Coded Allergies: Penicillins (Verified Allergy, Unknown, 02/22/25) Scheduled Aspirin (Aspirin EC), 1 TAB PO DAILY, (Reported) Atorvastatin Calcium* (Lipitor*), 1 TABLET PO HS Carvedilol (Carvedilol), 1 TAB PO BID, (Reported) Dapagliflozin Propanediol (Farxiga), 1 TAB PO DAILY Diclofenac Sodium (Diclofenac Sodium), 1 TAB PO Q12H Hydroxyzine Hcl* (Atarax*), 1 TAB PO BID, (Reported) Lisinopril (Lisinopril), 0.25 TAB PO DAILY, (Reported) Metoprolol Tartrate (Metoprolol Tartrate), 1 TAB PO DAILY, (Reported) Pantoprazole Sodium (Pantoprazole Sodium), 1 TAB PO DAILY, (Reported) Spironolactone (Aldactone), 1 TAB PO DAILY Scheduled PRN Hydrocodone Bit/Acetaminophen 5/325 MG ([place] 5/325 MG), 1-2 TAB PO Q4H PRN for moderate or severe pain Miscellaneous Medications Sertraline HCl (Sertraline HCl), (Reported) Trazodone HCl (Trazodone HCl), (Reported) Past Medical History Past Medical History: *CARDIOVASCULAR*, Congestive Heart Failure, Bipolar Past Surgical History: noncontributory Patient History: FH: dementia FATHER FH: heart disease FATHER MOTHER Drug Use: none Review of Systems All Other Systems at this time: Reviewed and Negative Physical Exam Vital Signs: RN Vital Signs have been reviewed: Yes, Temperature: 98.2, Source: Oral, Heart Rate: 71, Respiratory Rate: 15, BP: 108/63, Pulse Oximetry: 98, Weight: 59.000 Oxygen Flow Rate: 0 Physical Exam HEENT: PERRL, moist oral mucosa, EOMI Pulmonary: No respiratory distress Cardiac: RRR, no murmur, rub or gallop GI: nondistended, soft, nontender, no guarding, no rebound MSK: no deformity Skin: w/d/i, no rash Neuro: alert, nonfocal Psych: normal affect Progress Results/Orders Results/Orders Orders - FATOU CASTRO MD Chest,Single View (03/11/25 13:25) Monitor (03/11/25 13:25) Saline Lock (03/11/25 13:25) Oxygen (03/11/25 13:25) Urinalysis, Cult If Indicated (03/11/25 13:59) Completed Orders - FATOU CASTRO MD Chest,Single View (03/11/25 13:25) Cbc/Diff (03/11/25 13:25) BMP (03/11/25 13:25) PBNP (03/11/25 13:25) Electrocardiogram (03/11/25 13:25) Hs Troponin I W Calculations (03/11/25 13:25) Hs Troponin I W Calculations (03/11/25 15:25) Diphenhydramine Inj (Benadryl Inj.) (03/11/25 14:55) Metoclopramide Inj (Reglan Inj) (03/11/25 14:55) Ketorolac Trometh 30mg/Ml Vial (Toradol (03/11/25 14:55) Normal Saline 500ml Iv Soln (Sodium Chlo (03/11/25 15:00) Normal Saline 500ml Iv Soln (Sodium Chlo (03/11/25 15:05) Medications Received in ER Medications (Trade) Dose Ordered Sig/Taisha Route PRN Reason Start Time Stop Time Status Last Admin Dose Admin (Benadryl inj.) 50 mg ONCE ONCE IV 03/11/25 14:55 03/11/25 14:56 DC 03/11/25 15:11 50 MG (Reglan inj) 10 mg ONCE ONCE IV 03/11/25 14:55 03/11/25 14:56 DC 03/11/25 15:11 10 MG (Toradol inj. 30mg/ml) 30 mg ONCE ONCE IV 03/11/25 14:55 03/11/25 14:56 DC 03/11/25 15:11 30 MG Sodium Chloride 500 ml @ 500 mls/hr ONCE ONCE IV 03/11/25 15:05 03/11/25 16:04 DC 03/11/25 15:12 500 MLS/HR Vital Signs 03/11/25 03/11/25 03/11/25 03/11/25 13:17 13:39 14:37 15:11 Temp 98.2 Pulse 78 66 Resp 16 15 16 B/P (MAP) 91/51 96/58 (71) Pulse Ox 97 96 O2 Flow Rate 0 0 03/11/25 15:24 Pulse 71 Resp 15 B/P (MAP) 108/63 (78) Pulse Ox 98 O2 Flow Rate 0 Laboratory Tests Test 03/11/25 13:38 03/11/25 15:41 White Blood Count 5.5 Red Blood Count 3.76 L Hemoglobin 10.7 L Hematocrit 32.1 L Mean Corpuscular Volume 85.4 Mean Corpuscular Hemoglobin 28.6 Mean Corpuscular Hemoglobin Concent 33.4 Red Cell Distribution Width 14.3 Platelet Count 217 Mean Platelet Volume 6.8 L Neutrophils (%) (Auto) 68.2 Lymphocytes (%) (Auto) 19.7 L Monocytes (%) (Auto) 8.3 Eosinophils (%) (Auto) 3.3 Basophils (%) (Auto) 0.5 Neutrophils # (Auto) 3.8 Lymphocytes # (Auto) 1.1 Monocytes # (Auto) 0.5 Eosinophils # (Auto) 0.2 Basophils # (Auto) 0.0 CBC Comment Sodium Level 139 Potassium Level 3.7 Chloride Level 105 Carbon Dioxide Level 28.7 Anion Gap 5 L Blood Urea Nitrogen 15 Creatinine 1.11 H Estimated GFR/1.73 m2 82 BUN/Creatinine Ratio 13.5 Glucose Level 91 Calcium Level 8.8 Troponin I High Sensitivity 12 14 Pro-B-Type Natriuretic Peptide 645 H Albumin 3.3 L Chemistry Comments Troponin I High Sens Percent Delta 16 Troponin I Hi Sens Absolute Change 2 Medical Decision Making Findings 59 year old male with mild hypotension and variety of complaints. Exam and workup were largely unremarkable. IVF, medications for headache, improved and sleeping on reevaluation, will road test and discharge. Differential Dx:Considerations: Include: dehydration, dysrhythmia, electrolyte imbalance, encephalopathy, hypoglycemia, hypotension, hypovolemia, myocardial infarction, renal failure Departure Disposition: 01 HOME / SELF CARE / HOMELESS Impression: Primary Impression: Headache Additional Impression: Weakness Condition: Stable Discharge Instructions: Weakness Referrals: NO PRIMARY CARE PROVIDER (PCP) Education Educated: Patient Educated regarding: diagnosis, treatment, prognosis, need for follow up Signature Scribe Signature: . Attestation: . FATOU CASTRO MD Mar 11, 2025 17:03
[2025-03-11 17:49] VITALS: BP 122/75; PULSE 78; RESP 16; O2SAT 98
== END 2025-03-11 18:05 | disposition home or self-care (01) ==
LOC: ER 13:16
DX: R51.9 Headache, unspecified (principal); R53.1 Weakness; I50.9 Heart failure, unspecified; F31.9 Bipolar disorder, unspecified; Z88.0 Allergy status to penicillin; Z79.82 Long term (current) use of aspirin; Z79.899 Other long term (current) drug therapy
CPT/HCPCS: 36415; 71045; 80048; 83880; 84484; 85025; 93005; 96361; 96374; 96375; 99285; J1200; J1885; J2765; J7040